=== PATIENT | male | born 1985 | race Caucasian/White ===

== ENCOUNTER 2020-05-15 12:59 | Emergency (ER) | payer MEDICAID, SELFPAY ==
[2020-05-15 14:07] VITALS: BP 134/84; PULSE 86; RESP 19; TEMP 36.6; O2SAT 97; BMI 39.8
--- NOTE | 2020-05-15 14:23 | XR_ITS ---
EXAMINATION: XR chest 1V CLINICAL INFORMATION: Reason for Exam SOB. Asthma COMPARISON: None TECHNIQUE: Portable chest x-ray marked 2:39 PM Tubes and lines: None Lungs and Ina: Both lungs are clear. Pleura: Normal. Costophrenic angles are sharp. No pneumothorax. Heart and mediastinum: The mediastinum is within normal limits.. Bones: Skeletal structures included are normal for patient's age. IMPRESSION: Normal portable chest x-ray.
--- NOTE | 2020-05-15 14:27 | ED.ASTHMA ---
HPI - Asthma General Chief Complaint: Asthma Stated Complaint: ASTHMA Time Seen by Provider: 05/15/20 14:22 Source: patient Mode of arrival: ambulatory History of Present Illness HPI Narrative: 34-year-old male with a PMHx asthma complaining of asthma exacerbation since Saturday night. Reports worsening SOB, dry cough, and mild chest tightness. States ran out of albuterol rescue inhaler, and has been added neb liquid for a long time. Denies fever, chills, CP at present, productive cough, recent travel, history of clots, sick contacts/exposure to COVID-19 complaint: asthma attack , shortness of breath and wheezing Onset (ago): day(s) Related Data Previous Rx's Medication Instructions Recorded albuterol sulfate 2 puff INHALATION Q4-6H PRN #6.7 g 05/15/20 albuterol sulfate 5 mg INHALATION Q4H PRN #30 ea 05/15/20 prednisone 40 mg PO DAILY 5 Days #10 tab 05/15/20 Allergies Allergy/AdvReac Type Severity Reaction Status Date / Time ibuprofen [IBUPROFEN] Allergy Mild ITCHY Unverified 04/21/20 18:39 Review of Systems Review of Systems: Yes all other systems are reviewed and are negative Constitutional: Constitutional: Reports as per HPI, Denies chills and Denies fever(s) Eyes: Eyes: Reports as per HPI and Reports no additional eye complaints ENT: Reports system reviewed and no additional complaints, except as documented and Reports as per HPI Cardiovascular: Cardiovascular: Reports as per HPI, Reports no additional cardiovascular complaints, Reports chest pain (gone), Denies leg edema, Reports dyspnea and Reports dyspnea on exertion Respiratory: Respiratory: Reports as per HPI, Reports chest congestion, Reports cough, Denies excessive phlegm production, Reports dyspnea and Reports dyspnea on exertion Gastrointestinal: Gastrointestinal: Reports as per HPI and Reports no additional gastrointestinal complaints Genitourinary: Genitourinary: Reports as per HPI Musculoskeletal: Musculoskeletal: Reports no additional musculoskeletal complaints and Reports as per HPI Integumentary/Breasts: Skin/Breast: Reports system reviewed and no additional complaints, except as docu, Reports as per HPI, Denies rash and Denies wounds Neurologic: Reports system reviewed and no additional complaints, except as documented and Reports as per HPI Psychiatric: Psychiatric: Reports no additional psychiatric complaints and Reports as per HPI Endocrine: Endocrine: Reports no additional endocrine complaints and Reports as per HPI Hematologic/Lymphatic: Hematologic/Lymphatic: Reports no additional hematologic/lymphatic complaints and Reports as per HPI Allergic/Immunologic: Allergic/Immunologic: Reports no additional allergic/immunologic complaints and Reports as per HPI [facility] Past Medical History Attestation statement: The following information was validated with the patient. Medical History Asthma Social History Social History Alcohol intake: never Smoking Status: Never smoker Use of substances other than those prescribed or required for medical reasons: Yes Substance Use Type: Marijuana Substance Use Frequency: Occasionally Last Used Substance: Weeks (ago) Any prior treatment program specific to substance use: No Advance Directives: No Advance Directives Information Provided: No Physical Exam Vital Signs: Vital Signs: Vital Signs Temp Pulse Resp BP Pulse Ox 05/15/20 16:06 89 20 141/104 H 96 05/15/20 14:07 98 F 86 19 134/84 97 Body Mass Index 39.8 Const: General: cooperative and healthy appearing Orientation/consciousness: patient oriented x3 Limitations: no limitations HENMT: Head: Yes normal to inspection Ears: hearing grossly normal bilaterally General nose exam: Normal external nose present Face and sinus: Yes normal facial exam Eyes: General: appearance normal, both eyes and all related structures EOM: EOMs intact bilaterally Neck: Neck: Yes normal visual inspection Resp: Effort & Inspection: normal respiratory effort, no stridor and not tachypneic Auscultation: wheezes expiratory wheezes, inspiratory wheezes and throughout Cardio: Rate: regular rate Heart sounds: S1 normal heart sound present and S2 normal heart sound present GI: Inspection: Yes normal to inspection Skin: Rashes: no rashes Wounds: no wounds Neuro: General: patient oriented x3 Gait exam (Neuro): Normal gait present Extrem: General: Yes normal to inspection Course Reevaluation(s) Reevaluation #1: on re-evaluation after DuoNeb patient with better air movement but still diffuse wheezing. Patient was moved into main ED, will give our long Duoneb and reassess Time: 15:56 Reevaluation #2: - labs unremarkable, on re-evaluation patient reports symptomatic improvement, lungs CTA. Repeat BP 136/93 worrisome signs and symptoms and strict return precautions discussed with patient. he verbalized understanding feel safe for discharge Time: 17:34 MDM - Asthma MDM Narrative Medical decision making narrative: 34-year-old male with a PMHx asthma complaining of asthma exacerbation since Lance night. Reports worsening SOB, dry cough, and mild chest tightness. On exam VSS, nontoxic appearing, diffuse inspiratory / expiratory wheeze. Concerning for asthma exacerbation. Rule out pneumonia. Low concern for ACS / PE Plan: EKG, labs, CXR, DuoNeb, magnesium, Solu-Medrol, reassess Differential Diagnosis Differential diagnosis: Likely Acute exacerbation, Pneumonia and Pneumothorax Medical Records Attestation: I reviewed the patient's medical records. Lab Data Result diagrams: 05/15/20 16:18 05/15/20 16:18 Labs: Lab Results 05/15/20 05/15/20 05/15/20 Range/Units 16:18 16:18 16:18 WBC 6.1 (4.8-10.8) X10*3/uL RBC 5.14 (4.60-5.80) X10*6/uL Hgb 15.5 (14.0-18.0) g/dl Hct 45.5 (42-52) % MCV 88.5 (80-98) fL MCH 30.2 (27.0-33.0) pg MCHC 34.1 (31.0-36.0) g/dl RDW 12.9 (11.0-16.0) % Plt Count 213 (160-400) X10*3/uL MPV 10.4 (9.4-12.4) fL Immature Gran % (Auto) 0.3 (0.0-0.4) % Neut % (Auto) 50.8 (45-73) % Lymph % (Auto) 30.9 (20-40) % [place] % (Auto) 7.8 (2-11) % Eos % (Auto) 9.5 H (0-4) % Baso % (Auto) 0.7 (0-2) % Lymph # (Auto) 1.9 (1.2-4.9) X10*3/uL [place] # (Auto) 0.5 (0.1-1.2) X10*3/uL Eos # (Auto) 0.6 H (0.0-0.4) X10*3/uL Baso # (Auto) 0.0 (0.0-0.2) X10*3/uL Abs Immat Gran (auto) 0.02 (0.00-0.03) X10*3/uL Absolute Neuts (auto) 3.1 (2.0-8.3) X10*3/uL Absolute Nucleated RBC 0.000 (0.0-0.012) X10*3/uL Nucleated RBC % (auto) 0.0 (0.0-0.2) /100WBC Sodium 138 (135-145) mmol/L Potassium 4.1 (3.3-5.1) mmol/l Chloride 105 (96-108) mmol/L Carbon Dioxide 26 (22-29) mmol/L Anion Gap 11 L (12-20) BUN 9 (9-16) mg/dL Creatinine 0.77 (0.5-1.4) mg/dL Estim Creat Clear Calc 205.6 Estimated GFR > 60 Random Glucose 87 (60-115) mg/dL Calcium 9.2 (8.4-10.2) mg/dL Troponin I High Sens < 3.5 (<3.5-35.0) ng/L Discharge Plan Discharge Clinical Impression: Asthma with acute exacerbation Patient Disposition: Home, Self-Care Instructions: Asthma (ED) Additional Instructions: your blood work and chest x-ray were unremarkable today in the ED Your having an asthma exacerbation new line use albuterol inhaler at home every 4-6 hours as needed In addition you need to be using her nebulizer machine every 4 hours Prednisone as a steroid, take as prescribed Follow-up with her doctor none if symptoms persist /worsen, constant worsening shortness breath/chest pain or cough or fever return to the ED Prescriptions: New prednisone 20 mg tablet 40 mg PO DAILY 5 Days Qty: 10 RF: 0 albuterol sulfate 90 mcg/actuation HFA aerosol inhaler 2 puff inhalation Q4-6H PRN (Reason: shortness of breath or wheezing) Qty: 6.7 RF: 0 albuterol sulfate 2.5 mg/0.5 mL solution for nebulization 5 mg inhalation Q4H PRN (Reason: shortness of breath or wheezing) Qty: 30 RF: 0
--- NOTE | 2020-05-15 14:30 | ECG_ITS ---
Test Reason : SOB Blood Pressure : / mmHG Vent. Rate : 084 BPM Atrial Rate : 084 BPM P-R Int : 142 ms QRS Dur : 090 ms QT Int : 344 ms P-R-T Axes : 042 046 023 degrees QTc Int : 406 ms Normal sinus rhythm Normal ECG No significant changes seen Referred By: Monica Beltran Electronically Signed By:ALLEGRA MARCUS MD
[2020-05-15] MEDS: Albuterol/Iprat 2.5/0.5MG 3 ML AMPUL.NEB INHALE (14:41)
[2020-05-15 16:06] VITALS: BP 141/104; PULSE 89; RESP 20; O2SAT 96
[2020-05-15 16:25] VITALS: PULSE 84; O2SAT 96
[2020-05-15 16:27] LABS: MANUAL DIFF FLAG NO
[2020-05-15 16:29] LABS: Basophils Percent Auto 0.7 % (0-2); Eosinophils Absolute Auto 0.6 X10*3/uL (0.0-0.4); Eosinophils Percent Auto 9.5 % (0-4); Hematocrit 45.5 % (42-52); Hemoglobin 15.5 g/dl (14.0-18.0); Imm Gran Abs Auto 0.02 X10*3/uL (0.00-0.03); Imm Gran Pct Auto 0.3 % (0.0-0.4); Lymphocytes Absolute Auto 1.9 X10*3/uL (1.2-4.9); Lymphocytes Percent Auto 30.9 % (20-40); Mean Corpuscular HGB Conc 34.1 g/dl (31.0-36.0); Mean Corpuscular Hemoglobin 30.2 pg (27.0-33.0); Mean Corpuscular Volume 88.5 fL (80-98); Mean Platelet Volume 10.4 fL (9.4-12.4); Monocytes Absolute Auto 0.5 X10*3/uL (0.1-1.2); Monocytes Percent Auto 7.8 % (2-11); Neutrophils Absolute Auto 3.1 X10*3/uL (2.0-8.3); Neutrophils Percent Auto 50.8 % (45-73); Platelet Count 213 X10*3/uL (160-400); Red Blood Count 5.14 X10*6/uL (4.60-5.80); Red Cell Distribution Width 12.9 % (11.0-16.0); White Blood Count 6.1 X10*3/uL (4.8-10.8)
[2020-05-15] MEDS: Magnesium Sulfate/H2O 2 GM/50 ML PIGGYBACK IV (16:35)
[2020-05-15] MEDS: methylPREDNISolone Sod Succ/PF 125 MG/2 ML VIAL IVPUSH (16:35)
--- NOTE | 2020-05-15 16:38 | PC.NURSE ---
PT ALERT AND ORIENTED, SKIN PWD, RESPIRATIONS EVEN AND UNLABORED, LS DIMINISHED AND WHEEZING THROUGH OUT, PT REPORTS FEELING A LITTLE BETTER AFTER THE FIRST BREATHING TREATMENT, CURRENLTY ON A HOUR LONG TREATMENT. NS ON THE MONITOR
[2020-05-15] MEDS: Albuterol/Iprat 2.5/0.5MG 3 ML AMPUL.NEB 10 ML INHALE (16:40)
[2020-05-15 16:58] LABS: Anion Gap 11 (12-20); Blood Urea Nitrogen 9 mg/dL (9-16); Calcium 9.2 mg/dL (8.4-10.2); Carbon Dioxide 26 mmol/L (22-29); Chloride 105 mmol/L (96-108); Creatinine Clr Calc Pharmacy 205.6; Estimated Glomerular Filt Rate > 60; Glucose Random 87 mg/dL (60-115); Potassium 4.1 mmol/l (3.3-5.1); Sodium 138 mmol/L (135-145)
[2020-05-15 17:06] LABS: Troponin-I High Sensitivity < 3.5 ng/L (<3.5-35.0)
--- NOTE | 2020-05-15 18:37 | PC.NURSE ---
pt reports feeling better, ls improved after the medications
== END 2020-05-15 18:37 | disposition home or self-care (01) ==
PROVIDERS: Physician Assistant; Emergency Provider Emergency Medicine
DX: J45.901 Unspecified asthma with (acute) exacerbation (principal); F12.90 Cannabis use, unspecified, uncomplicated
CPT/HCPCS: 36415; 71045; 80048; 84484; 85025; 93005; 96365; 96375; 99284; J2930; J3475

== ENCOUNTER 2020-06-05 00:57 | Emergency (ER) | payer MEDICAID, SELFPAY ==
[2020-06-05 01:02] LABS: Alanine Aminotransferase 52 U/L (0-40); Alkaline Phosphatase 84 U/L (39-117); Anion Gap 15 (12-20); Aspartate Amino Transferase 23 U/L (5-37); Bilirubin Total 0.3 mg/dL (0.0-1.0); Blood Urea Nitrogen 6 mg/dL (9-16); Calcium 8.4 mg/dL (8.4-10.2); Carbon Dioxide 24 mmol/L (22-29); Chloride 105 mmol/L (96-108); Creatinine Clr Calc Pharmacy 189.7; Estimated Glomerular Filt Rate > 60; Glucose Random 143 mg/dL (60-115); Potassium 3.5 mmol/l (3.3-5.1); Sodium 140 mmol/L (135-145); Total Protein 6.7 g/dL (6.5-8.0)
[2020-06-05 01:04] VITALS: BP 146/76; PULSE 102; RESP 24; TEMP 37.6; O2SAT 95
[2020-06-05 01:06] VITALS: BP 146/76; PULSE 102; RESP 24; TEMP 37.6; O2SAT 95; BMI 40.0
--- NOTE | 2020-06-05 01:09 | XR_ITS ---
EXAMINATION: XR CHEST CLINICAL INFORMATION: Shortness of breath COMPARISON: 05/15/2020 TECHNIQUE: Frontal view of the chest was obtained. FINDINGS: Cardiac leads overlie the chest. The lungs are well expanded. There is no focal consolidation, edema, or effusion. No pneumothorax. The cardiomediastinal silhouette is within normal limits. No acute osseous abnormality. XR/XR chest 1V IMPRESSION: No acute pulmonary finding.
[2020-06-05] MEDS: Albuterol Sulfate (0.083%) 2.5 MG/3 ML VIAL.NEB 10 MG INHALE (01:20)
[2020-06-05 01:25] VITALS: PULSE 124; O2SAT 95
[2020-06-05 01:32] LABS: Basophils Percent Auto 0.6 % (0-2); Eosinophils Absolute Auto 0.4 X10*3/uL (0.0-0.4); Eosinophils Percent Auto 5.7 % (0-4); Hematocrit 42.6 % (42-52); Hemoglobin 14.8 g/dl (14.0-18.0); Imm Gran Abs Auto 0.04 X10*3/uL (0.00-0.03); Imm Gran Pct Auto 0.6 % (0.0-0.4); Lymphocytes Percent Auto 27.2 % (20-40); Mean Corpuscular HGB Conc 34.7 g/dl (31.0-36.0); Mean Corpuscular Hemoglobin 30.3 pg (27.0-33.0); Mean Corpuscular Volume 87.3 fL (80-98); Mean Platelet Volume 10.1 fL (9.4-12.4); Monocytes Absolute Auto 0.5 X10*3/uL (0.1-1.2); Monocytes Percent Auto 6.9 % (2-11); Neutrophils Absolute Auto 4.3 X10*3/uL (2.0-8.3); Platelet Count 216 X10*3/uL (160-400); Red Blood Count 4.88 X10*6/uL (4.60-5.80); Red Cell Distribution Width 12.7 % (11.0-16.0); White Blood Count 7.2 X10*3/uL (4.8-10.8)
[2020-06-05] MEDS: methylPREDNISolone Sod Succ/PF 125 MG/2 ML VIAL IVPUSH (01:32)
--- NOTE | 2020-06-05 01:32 | ED_ITS ---
HPI - Asthma General Chief Complaint: Asthma Stated Complaint: Asthma Time Seen by Provider: 06/05/20 01:08 EDT Source: patient Mode of arrival: ambulatory Limitations: no limitations History of Present Illness HPI Narrative: This is a 34-year-old male with history of asthma and presents with worsening shortness of breath and wheezing over the past couple of days despite using his inhaler every 4 hours. This is not been associated with any fevers, chills, recent travel, or COVID-19 exposure. Related Data Previous Rx's Medication Instructions Recorded albuterol sulfate 2 puff INHALATION Q4-6H PRN #6.7 g 05/15/20 albuterol sulfate 5 mg INHALATION Q4H PRN #30 ea 05/15/20 prednisone 40 mg PO DAILY 5 Days #10 tab 05/15/20 Allergies Allergy/AdvReac Type Severity Reaction Status Date / Time ibuprofen [IBUPROFEN] Allergy Mild ITCHY Verified 06/05/20 01:59 EDT Review of Systems Review of Systems: Pertinent positives and negatives as stated in HPI 10 point review of systems is otherwise negative PMFSH Past Medical History Source: nursing notes reviewed Medical History (Reviewed 06/05/20 @ 01:33 EDT by Teodora Ng MD) Asthma Social History Social History (Reviewed 06/05/20 @ 01:33 EDT by Teodora Ng MD) Alcohol intake: never Smoking Status: Never smoker Smoked in Last 30 Days: No Use of substances other than those prescribed or required for medical reasons: No Substance Use Type: Marijuana Advance Directives: No Advance Directives Information Provided: Yes Physical Exam Vital Signs: Vital Signs: Vital Signs Temp Pulse Resp BP Pulse Ox 06/05/20 01:25 ES T 95 06/05/20 01:06 ED T 99.7 F 102 H 24 H 146/76 H 95 06/05/20 01:04 ED T 99.7 F 102 H 24 H 146/76 H 95 Body Mass Index 40.0 VITAL SIGNS: Reviewed. GENERAL: Well developed, well nourished, in no acute distress. HEAD: Normocephalic/atraumatic, EYES: PERRLA, EOMI intact without pain, no nystagmus/pallor/icterus noted EARS: Ext canals without abnormality, TMs non-bulging and non-erythematous NOSE: Nares patent bilateral OROPHARYNX: no oral lesions noted, posterior pharynx clear and non-erythematous without noted tonsillar enlargement/erythema/exudates NECK: Supple, no adenopathy LUNGS: expiratory wheezing bilaterally with mild increase in work of breathing noted, SpO2<95> CARDIOVASCULAR: Regular rate and rhythm without noted murmurs, no JVD or lower extremity edema. ABDOMEN: Soft, non-tender, non-distended with bowel sounds. No rigidity. No guarding. No palpable masses or hernias noted MUSCULOSKELETAL: No tenderness, deformities, or effusions noted on gross inspection. EXTREMITIES: No cyanosis, clubbing or edema. SKIN: Inspection of the skin reveals no rashes, ulcerations, jaundice, pallor, or petechiae. NEUROLOGIC: Alert and oriented x 4. Strength and sensation to light touch were grossly intact x 4. Course Course Course Narrative: This is a 34-year-old male with history and clinical presentation consistent with mild acute asthma exacerbation. On re-evaluation and review of all investigations patient is clinically improved with no further work of breathing or tachypnea and no evidence of acute abnormalities on lab work or imaging. All results and findings were discussed with the patient at bedside and he will be discharged home in stable condition with a short course of steroids. MDM - Asthma Lab Data Result diagrams: 06/05/20 01:25 EST 06/05/20 01:25 EST Labs: Lab Results 06/05/20 06/05/20 Range/Units 01:25 EST 01:25 EST WBC 7.2 (4.8-10.8) X10*3/uL RBC 4.88 (4.60-5.80) X10*6/uL Hgb 14.8 (14.0-18.0) g/dl Hct 42.6 (42-52) % MCV 87.3 (80-98) fL MCH 30.3 (27.0-33.0) pg MCHC 34.7 (31.0-36.0) g/dl RDW 12.7 (11.0-16.0) % Plt Count 216 (160-400) X10*3/uL MPV 10.1 (9.4-12.4) fL Immature Gran % (Auto) 0.6 H (0.0-0.4) % Neut % (Auto) 59.0 (45-73) % Lymph % (Auto) 27.2 (20-40) % [place] % (Auto) 6.9 (2-11) % Eos % (Auto) 5.7 H (0-4) % Baso % (Auto) 0.6 (0-2) % Lymph # (Auto) 2.0 (1.2-4.9) X10*3/uL [place] # (Auto) 0.5 (0.1-1.2) X10*3/uL Eos # (Auto) 0.4 (0.0-0.4) X10*3/uL Baso # (Auto) 0.0 (0.0-0.2) X10*3/uL Abs Immat Gran (auto) 0.04 H (0.00-0.03) X10*3/uL Absolute Neuts (auto) 4.3 (2.0-8.3) X10*3/uL Absolute Nucleated RBC 0.000 (0.0-0.012) X10*3/uL Nucleated RBC % (auto) 0.0 (0.0-0.2) /100WBC Sodium 140 (135-145) mmol/L Potassium 3.5 (3.3-5.1) mmol/l Chloride 105 (96-108) mmol/L Carbon Dioxide 24 (22-29) mmol/L Anion Gap 15 (12-20) BUN 6 L (9-16) mg/dL Creatinine 0.86 (0.5-1.4) mg/dL Estim Creat Clear Calc 189.7 Estimated GFR > 60 Random Glucose 143 H D (60-115) mg/dL Calcium 8.4 (8.4-10.2) mg/dL Total Bilirubin 0.3 (0.0-1.0) mg/dL AST 23 (5-37) U/L ALT 52 H (0-40) U/L Alkaline Phosphatase 84 (39-117) U/L Total Protein 6.7 (6.5-8.0) g/dL Albumin 4.0 (3.5-5.0) g/dL Discharge Plan Discharge Clinical Impression: Asthma with acute exacerbation Qualifiers: Asthma severity: mild Asthma persistence: unspecified Qualified Code(s): J45.901 - Unspecified asthma with (acute) exacerbation Patient Disposition: Home, Self-Care Instructions: Asthma (ED) Additional Instructions: 1. Use mcguire inhalador de albuterol, 2 inhalaciones, cada suhail lupe horas, lupe las pr?ximas 24 horas. 2. Trate de minimizar el consumo de marihuana lupe las pr?ximas 24 a 48 horas. El paciente y / o la errol reconocen iram comprendido los resultados (seg?n corresponda), el diagn?stico, el plan de tratamiento, la necesidad de seguimiento y los s?ntomas que deber?an impulsar el regreso a la lissa de lydia rgencias.r Prescriptions: No Action prednisone 20 mg tablet 40 mg PO DAILY 5 Days Qty: 10 RF: 0 albuterol sulfate 90 mcg/actuation HFA aerosol inhaler 2 puff inhalation Q4-6H PRN (Reason: shortness of breath or wheezing) Qty: 6.7 RF: 0 albuterol sulfate 2.5 mg/0.5 mL solution for nebulization 5 mg inhalation Q4H PRN (Reason: shortness of breath or wheezing) Qty: 30 RF: 0 Referrals: [facility] [Primary Care Provider] - 2 days (Asthma exacerbation) Print Language: [place] Islander
[2020-06-05 01:33] LABS: MANUAL DIFF FLAG NO
[2020-06-05 02:23] VITALS: BP 137/80; PULSE 112; RESP 20; TEMP 36.6; O2SAT 96
== END 2020-06-05 02:24 | disposition home or self-care (01) ==
PROVIDERS: Emergency Provider Student in an Organized Health Care Education/Training Program
DX: J45.901 Unspecified asthma with (acute) exacerbation (principal); R07.81 Pleurodynia; Z79.899 Other long term (current) drug therapy; Z20.828 Contact with and (suspected) exposure to other viral communicable diseases
CPT/HCPCS: 36415; 71045; 80053; 85025; 96374; 99284; 99285; J2930

== ENCOUNTER 2020-06-18 12:56 | Emergency (ER) | payer MEDICAID, SELFPAY ==
[2020-06-18 13:13] VITALS: BP 125/83; PULSE 94; RESP 18; TEMP 36.9; O2SAT 95; BMI 39.9
--- NOTE | 2020-06-18 13:26 | ED.GENADULT ---
HPI - General Adult General Chief complaint: General Medical Stated complaint: body aches Time Seen by Provider: 06/18/20 13:26 Source: patient Mode of arrival: ambulatory Limitations: no limitations History of Present Illness HPI narrative: States he has had generalized body aches for 2 days and several people his job have been tested positive and he is anxious that he might have COVID-19 he is requesting a test. Denies any chest pain or shortness of breath. No abdominal pain. No nausea vomiting diarrhea. Onset (ago): day(s) ( 2) Severity: mild Quality: aching Pain Consistency: intermittent Relieving factors: none Exacerbating factors: none Associated symptoms: denies other symptoms Treatments prior to arrival: none Related Data Previous Rx's Medication Instructions Recorded albuterol sulfate 2 puff INHALATION Q4-6H PRN #6.7 g 05/15/20 albuterol sulfate 5 mg INHALATION Q4H PRN #30 ea 05/15/20 prednisone 40 mg PO DAILY 5 Days #10 tab 05/15/20 prednisone 40 mg PO DAILY 4 Days #8 tab 06/05/20 Allergies Allergy/AdvReac Type Severity Reaction Status Date / Time ibuprofen [IBUPROFEN] Allergy Mild ITCHY Verified 06/05/20 01:59 EDT Review of Systems Review of Systems: Constitutional: No Weight loss, No Fever, No Chills, No Night Sweats, No Fatigue, No Malaise ENT/Mouth: No Hearing loss, No Ear Pain, + Nasal Congestion, No Sinus Pain, No Hoarseness, No sore throat, No Rhinorrhea, No Swallowing Difficulty Eyes: No Eye Pain, No Swelling, No Redness, No Foreign Body, No Discharge, No Vision Changes Cardiovascular: No Chest Pain, No SOB, No Dyspnea on Exertion, No Orthopnea, No Edema, No Palpitations Respiratory: No Cough, No Sputum, No Wheezing Gastrointestinal: No Nausea, No Vomiting, No Diarrhea, No Constipation, No abdominal Pain Genitourinary: No Hematuria, No Urinary Incontinence, No Urgency, No Flank Pain Musculoskeletal: No joint pain, No Myalgias, No Joint Swelling Skin: No Skin Lesions, No rash Neuro: No Weakness, No Numbness, No Paresthesias, No Loss of Consciousness, No Dizziness, No Headache Psych: No Social Issues Heme/Lymph: No Bruising, No Bleeding,No Lymphadenopathy Endocrine: No Polyuria, No Polydipsia, No Temperature Intolerance Yes all other systems are reviewed and are negative [facility] Past Medical History Attestation statement: The following information was validated with the patient. Medical History (Reviewed 06/05/20 @ 01:33 EDT by Teodora Ng MD) Asthma Social History Social History (Reviewed 06/05/20 @ 01:33 EDT by Teodora Ng MD) Alcohol intake: never Smoking Status: Never smoker Substance Use Type: Marijuana Advance Directives: No Advance Directives Information Provided: Yes Physical Exam Vital Signs: Vital Signs: Last Vital Signs Temp 98.5 F 06/18/20 13:13 Pulse 94 06/18/20 13:13 Resp 18 06/18/20 13:13 BP 125/83 06/18/20 13:13 Pulse Ox 95 06/18/20 13:13 Body Mass Index 39.9 Reviewed Const: General: cooperative and healthy appearing; No acute distress or intoxicated appearing Nutritional Appearance: average body habitus Orientation/consciousness: patient oriented x3 HENMT: Head: Yes normal to inspection Ears: hearing grossly normal bilaterally Eyes: General: appearance normal, both eyes and all related structures Visual Solano: normal visual solano by confrontation Neck: Neck: Yes normal visual inspection, No positive Brudzinski's sign, No positive Kernig's sign and No tender Thyroid: Thyroid normal Chest: Chest palpation & inspection: normal inspection of the chest Resp: Effort & Inspection: normal respiratory effort Cardio: Jugular venous distension: no JVD GI: Inspection: Yes normal to inspection Percussion: Yes normal to percussion Auscultation: normal bowel sounds : General: Yes no CVA tenderness Back/Spine/Pelvis: Back: no CVA tenderness Skin: General skin exam: no rashes or lesions noted Neuro: General: patient oriented x3 Extrem: General: Yes normal to inspection Discharge Plan Discharge Clinical Impression: Acute upper respiratory infection Patient Disposition: Home, Self-Care Additional Instructions: Based on your symptoms and history we have sent a COVID-19. Although your RESULT IS PENDING at this time. RESULTS should return within 72 hours. At this time you will be contacted with either NEGATIVE OR POSITIVE results. -Please wait until we contact you for your results. At this time you will be okay for discharge. Please plan for self quarantine for up to 14 days. Do not expose yourself to others. You may not go to work. If testing does come back negative you may return to activities as long as you are no longer having any symptoms for at least 3 days. Please continue to follow cold instructions and wash your hands frequently. You may take Tylenol as directed on the bottle for pain or fever. Patient seen in the emergency department on 01/29/2020 and should be excused from work until negative test results AND until 72 hours without any symptoms AND at least 10 days have passed since symptoms first appeared or since last exposure to COVID-19 positive patient CDC Guidelines for home isolation: - Stay away from others - WEAR A MASK if you are sick AND STAY HOME - Cover your mouth and nose with a tissue when you cough or sneeze. Dispose of tissues in a lined trash can and wash your hands immediately with soap and water for at least 20 seconds. If soap and water are not available, clean hands with alcohol-based hand belt brander that contains at least 60% alcohol. - Clean your hands often with soap and water for at least 20 seconds - Avoid touching your eyes, nose and mouth with unwashed hands - Do not share dishes, drinking glasses, cups, eating utensils, towels, or bedding with other people in your home. After using these items, wash them thoroughly with soap and water or put in the oceanographer assistant. - Clean high-touch surfaces in your isolation area ( sick room and bathroom) every day; let a caregiver clean and disinfect high-touch surfaces in other areas of the home. Clean the area or item with soap and water or another detergent if it is dirty. Then, use a household disinfectant. - Limit contact with pets and animals: If you must care for a pet, wash your hands before and after interacting with them Prescriptions: No Action prednisone 20 mg tablet 40 mg PO DAILY 5 Days Qty: 10 RF: 0 albuterol sulfate 90 mcg/actuation HFA aerosol inhaler 2 puff inhalation Q4-6H PRN (Reason: shortness of breath or wheezing) Qty: 6.7 RF: 0 albuterol sulfate 2.5 mg/0.5 mL solution for nebulization 5 mg inhalation Q4H PRN (Reason: shortness of breath or wheezing) Qty: 30 RF: 0 prednisone 20 mg tablet 40 mg PO DAILY 4 Days Qty: 8 RF: 0 Referrals: Jordyn Sexton MD [Primary Care Provider] - 1 week (Phone visit )
== END 2020-06-18 13:45 | disposition home or self-care (01) ==
PROVIDERS: Nurse Practitioner Primary Care; Emergency Provider Emergency Medicine; PCP Internal Medicine
DX: J06.9 Acute upper respiratory infection, unspecified (principal); M79.10 Myalgia, unspecified site; F12.90 Cannabis use, unspecified, uncomplicated; Z20.828 Contact with and (suspected) exposure to other viral communicable diseases
CPT/HCPCS: 99283; U0003

== ENCOUNTER 2020-07-12 22:05 | Emergency (ER) | payer MEDICAID, SELFPAY ==
--- NOTE | 2020-07-12 | ECG_ITS ---
Test Reason : REPEAT Blood Pressure : / mmHG Vent. Rate : 080 BPM Atrial Rate : 080 BPM P-R Int : 150 ms QRS Dur : 094 ms QT Int : 368 ms P-R-T Axes : 046 045 025 degrees QTc Int : 424 ms Normal sinus rhythm Normal ECG When compared with ECG of 15-MAY-2020 15:47, No significant change was found Referred By: Charisma Mccartney Electronically Signed By:DEBBI JEFF
[2020-07-12 22:12] VITALS: BP 132/93; PULSE 90; RESP 18; TEMP 37.1; O2SAT 97; BMI 39.9
--- NOTE | 2020-07-12 22:45 | XR_ITS ---
EXAMINATION: XR CHEST CLINICAL INFORMATION: Shortness of breath COMPARISON: 06/05/2020 TECHNIQUE: Frontal view of the chest was obtained. FINDINGS: Normal symmetric lung volumes. No parenchymal consolidation. No pleural effusion. No pneumothorax. Cardiomediastinal silhouette and pulmonary vascularity are within normal limits. No acute osseous abnormalities. Rounded metallic density redemonstrated projecting over the right hemithorax. XR/XR chest 1V IMPRESSION: No acute findings.
--- NOTE | 2020-07-12 22:46 | ED_ITS ---
HPI - General Adult General Chief complaint: Dyspnea Stated complaint: flu like Time Seen by Provider: 07/12/20 22:41 Source: patient Mode of arrival: ambulatory Limitations: no limitations History of Present Illness HPI narrative: patient comes to emergency room complaining of feeling anxious, mild shortness of breath, possible asthma exacerbation. Patient states that he works 2nd shift, he had to leave work because he started feeling anxious. Patient states he was diagnosed with COVID-19 approximately 25 days ago. States he has been doing well until today. Patient has been using his inhaler almost daily but his asthma exacerbations resolved quickly. At this time, patient does not feel short of breath, no chest pain, states that sometimes it hurts when he takes a deep breath in the posterior aspect of the right side of the back. Patient denies fever or chills. Patient used his inhaler prior to arrival to the emergency room MD complaint: anxiety, asthma Related Data Previous Rx's Medication Instructions Recorded albuterol sulfate 2 puff INHALATION Q4-6H PRN #6.7 g 05/15/20 albuterol sulfate 5 mg INHALATION Q4H PRN #30 ea 05/15/20 prednisone 40 mg PO DAILY 5 Days #10 tab 05/15/20 prednisone 40 mg PO DAILY 4 Days #8 tab 06/05/20 prednisone 50 mg PO DAILY #4 tab 07/12/20 Allergies Allergy/AdvReac Type Severity Reaction Status Date / Time ibuprofen [IBUPROFEN] Allergy Mild ITCHY Verified 06/05/20 01:59 EDT Review of Systems Review of Systems: Constitutional : No Weight loss, No Fever, No Chills, No Night Sweats, No Fatigue, No Malaise ENT/Mouth : No Hearing loss, No Ear Pain, No Nasal Congestion, No Sinus Pain, No Hoarseness, No sore throat, No Rhinorrhea, No Swallowing Difficulty Eyes: No Eye Pain, No Swelling, No Redness, No Foreign Body, No Discharge, No Vision Changes Cardiovascular : No Chest Pain, No SOB, No Dyspnea on Exertion, No Orthopnea, No Edema, No Palpitations Respiratory : No Cough, No Sputum, No Wheezing at this time, No Dyspnea Gastrointestinal : No Nausea, No Vomiting, No Diarrhea, No Constipation, No abdominal Pain, No Hematochezia, No Melena Genitourinary : no irregular bleeding, No Dysuria, No Urinary Frequency, No Hematuria, No Urinary Incontinence, No Urgency, No Flank Pain, No Urinary Flow Changes, No Hesitancy Musculoskeletal : No joint pain, No Myalgias, No Joint Swelling Skin : No Skin Lesions, No rash Neuro : No Weakness, No Numbness, No Paresthesias, No Loss of Consciousness, No Dizziness, No Headache Psych : complaining of anxiety, No Depression, No SI/HI/AH/VH, No Social Issues, Heme/Lymph: No Bruising, No Bleeding,No Lymphadenopathy Endocrine : No Polyuria, No Polydipsia, No Temperature Intolerance [facility] Past Medical History Medical History (Updated 07/12/20 @ 23:53 by Charisma Mccartney MD) Anxiety Asthma Depression Social History Social History (Reviewed 06/05/20 @ 01:33 EDT by Teodora Ng MD) Alcohol intake: never Smoking Status: Never smoker Smoked in Last 30 Days: No Use of substances other than those prescribed or required for medical reasons: No Substance Use Type: Marijuana Advance Directives: No Advance Directives Information Provided: No Physical Exam Vital Signs: Vital Signs: Last Vital Signs Temp 99.2 F 07/12/20 22:52 Pulse 92 07/12/20 22:52 Resp 18 07/12/20 22:52 BP 149/93 H 07/12/20 22:52 Pulse Ox 96 07/12/20 22:52 Body Mass Index 39.9 Appearance: Alert. Oriented X3. No acute distress. Eyes: Pupils equal, round and reactive to light. ENT: Pharynx normal. Neck: Normal inspection. Neck supple. No lymph nodes noted. No crepitus CVS: Normal heart rate and rhythm. Pulses normal. Normal S1 and S2 Respiratory: No respiratory distress. Breath sounds normal. No Wheezing. No rales Abdomen: Soft and nontender. No rigidity. No distention. good BS x4 Skin: Skin warm and dry. Normal skin color. Normal skin turgor. Extremities: No lower extremity edema. No lower extremity edema. No Lacer ations. No Rash Neuro: Oriented X 3. No motor deficit. No sensory deficit. Moving all extermities. No slurred speech. Course Course Course Narrative: patient is symptomatic, discussed the x-ray and EKG with the patient, patient will be discharged with a prescription of prednisone, states he has enough albuterol. Patient symptoms also likely related to anxiety Patient requested medication for anxiety Medical Decision Making Imaging Data Chest x-ray: Radiologist's impression: Please follow-up with your primary care physician tomorrow. If you have any worsening or new symptoms, please return to the emergency room or call 911 ECG Data Attestation: I personally reviewed and interpreted this ECG as follows: ( heart rate 80, QTC 424, mostly segment depressions or elevations, no T-wave inversions.) Discharge Plan Discharge Clinical Impression: Asthma, Acute dyspnea, Anxiety Patient Disposition: Home, Self-Care Instructions: Asthma (ED) Additional Instructions: Please follow-up with your primary care physician tomorrow. If you have any worsening or new symptoms, please return to the emergency room or call 911 Prescriptions: New prednisone 50 mg tablet 50 mg PO DAILY Qty: 4 RF: 0 No Action prednisone 20 mg tablet 40 mg PO DAILY 5 Days Qty: 10 RF: 0 albuterol sulfate 90 mcg/actuation HFA aerosol inhaler 2 puff inhalation Q4-6H PRN (Reason: shortness of breath or wheezing) Qty: 6.7 RF: 0 albuterol sulfate 2.5 mg/0.5 mL solution for nebulization 5 mg inhalation Q4H PRN (Reason: shortness of breath or wheezing) Qty: 30 RF: 0 prednisone 20 mg tablet 40 mg PO DAILY 4 Days Qty: 8 RF: 0
[2020-07-12 22:52] VITALS: BP 149/93; PULSE 92; RESP 18; TEMP 37.3; O2SAT 96
[2020-07-12] MEDS: predniSONE 20 MG TABLET 60 MG PO (22:56)
== END 2020-07-13 00:40 | disposition home or self-care (01) ==
PROVIDERS: Emergency Provider Emergency Medicine; PCP Internal Medicine
DX: R06.00 Dyspnea, unspecified (principal); J45.909 Unspecified asthma, uncomplicated; F41.1 Generalized anxiety disorder; F43.0 Acute stress reaction; F12.90 Cannabis use, unspecified, uncomplicated; Z86.19 Personal history of other infectious and parasitic diseases
CPT/HCPCS: 71045; 93005; 99283; 99284

== ENCOUNTER 2020-08-15 09:34 | Inpatient (IN) | payer MEDICAID, SELFPAY ==
[2020-08-15] VITALS (8 sets, daily range): BP systolic 100–154; BP diastolic 62–90; PULSE 113–123; RESP 20–30; TEMP 36.2–37; O2SAT 88–98; BMI 38.7
--- NOTE | 2020-08-15 10:12 | XR_ITS ---
EXAMINATION: XR CHEST CLINICAL INFORMATION: Dyspnea COMPARISON: Previous chest x-ray most recent July 06 and TECHNIQUE: Frontal view of the chest was obtained. FINDINGS: The cardiac and mediastinal contours are normal. The lung volumes are low. There is question of an infiltrate in the right upper lobe. There is a round radiopaque foreign body that projects over the right mid chest that is stable. The lungs are otherwise clear. There is no pleural effusion or pneumothorax. There are degenerative changes of the spine. XR/XR chest 1V IMPRESSION: Low lung volumes. Question right upper lobe infiltrate.
--- NOTE | 2020-08-15 10:24 | ED.SOB ---
HPI - SOB/Dyspnea General Chief Complaint: Asthma Stated Complaint: sob Time Seen by Provider: 08/15/20 10:12 Source: patient and old records reviewed Mode of arrival: ambulatory Limitations: no limitations History of Present Illness HPI Narrative: 35 yo male with a history of asthma, COVID in june - states he has INH and nebulizer treatments at home, also states he is on daily prednisone from his PCP return of asthma as of last night unknown exposure MD elicited complaint: shortness of breath and cough Pertinent past history: asthma Onset (ago): day(s) (last night) Timing: constant Severity: similar to previous episodes Exacerbating factors: exertion Relieving factors: nothing Known history of: asthma Associated symptoms: denies other symptoms Treatment prior to arrival: bronchodilator Related Data Previous Rx's Medication Instructions Recorded albuterol sulfate 2 puff INHALATION Q4-6H PRN #6.7 g 05/15/20 albuterol sulfate 5 mg INHALATION Q4H PRN #30 ea 05/15/20 Allergies Allergy/AdvReac Type Severity Reaction Status Date / Time ibuprofen [IBUPROFEN] Allergy Mild ITCHY Verified 08/15/20 10:31 Review of Systems Review of Systems: Constitutional : No Fever, No Chills ENT/Mouth : No Hoarseness, No sore throat, No Rhinorrhea Eyes: No Redness, No Discharge, No Vision Changes Cardiovascular : No Chest Pain, positive SOB, positive Dyspnea on Exertion, No Edema Respiratory : positive Cough, No Sputum, positive Wheezing, Gastrointestinal : No Nausea, No Vomiting, No Diarrhea, No abdominal Pain Genitourinary : No Dysuria, No Hematuria Musculoskeletal : No joint pain, No Myalgias Skin : No rash Neuro : No Weakness, No Numbness, No Headache Psych : No anxiety, depression Heme/Lymph: No Bruising, No Bleeding Endocrine : No Polyuria, No Polydipsia All other systems reviewed and are negative PMFSH Past Medical History Attestation statement: The following information was validated with the patient. Medical History Anxiety Asthma Depression Social History Social History Alcohol intake: never Smoking Status: Never smoker Use of substances other than those prescribed or required for medical reasons: No Substance Use Type: Marijuana Advance Directives: No Advance Directives Information Provided: No Physical Exam Vital Signs: Vital Signs: Last Vital Signs Temp 98.3 F 08/15/20 10:27 Pulse 123 H 08/15/20 12:49 Resp 28 H 08/15/20 12:49 BP 115/62 08/15/20 12:49 Pulse Ox 95 08/15/20 12:49 Body Mass Index 38.7 Appearance: Alert. Oriented X3. Mild acute distress. Eyes: Pupils equal, round and reactive to light. ENT: Pharynx normal. Neck: Normal inspection. Neck supple. CVS: Normal heart rate and rhythm. Pulses normal. Respiratory: Mild respiratory distress with retractions and tachypnea Breath sounds decreased with end exp wheezes Abdomen: Soft and nontender. Skin: Skin warm and dry. Normal skin color. Normal skin turgor. Extremities: No lower extremity edema. No calf ttp Neuro: Oriented X 3. No motor deficit. No sensory deficit. Course Course Course Narrative: the patient has not had a sleep study yet RR still in 30s, O2 desats to 88% at times, will need admission for further management repeat neb ordered 110pm denied infectious symptoms but possible infiltrate on CXR - will add on lactic acid, cultures, IV antibiotics for possible pneumonia MDM - SOB/Dyspnea MDM Narrative Medical decision making narrative: 35 yo male with known asthma reports it worsened last night, has steroids and INH/neb at home, at this time will need basic labs, CXR, hour long 10mg neb, IV steroids, IV magnesium dispo per results and findings. Lab Data Result diagrams: 08/15/20 10:38 08/15/20 10:38 Labs: Lab Results 08/15/20 08/15/20 08/15/20 Range/Units 10:38 10:38 10:38 WBC 10.4 (4.8-10.8) X10*3/uL RBC 5.11 (4.60-5.80) X10*6/uL Hgb 15.3 (14.0-18.0) g/dl Hct 44.8 (42-52) % MCV 87.7 (80-98) fL MCH 29.9 (27.0-33.0) pg MCHC 34.2 (31.0-36.0) g/dl RDW 13.0 (11.0-16.0) % Plt Count 230 (160-400) X10*3/uL MPV 9.9 (9.4-12.4) fL Immature Gran % (Auto) 0.3 (0.0-0.4) % Neut % (Auto) 71.5 (45-73) % Lymph % (Auto) 15.5 L (20-40) % [place] % (Auto) 7.7 (2-11) % Eos % (Auto) 4.4 H (0-4) % Baso % (Auto) 0.6 (0-2) % Lymph # (Auto) 1.6 (1.2-4.9) X10*3/uL [place] # (Auto) 0.8 (0.1-1.2) X10*3/uL Eos # (Auto) 0.5 H (0.0-0.4) X10*3/uL Baso # (Auto) 0.1 (0.0-0.2) X10*3/uL Abs Immat Gran (auto) 0.03 (0.00-0.03) X10*3/uL Absolute Neuts (auto) 7.4 (2.0-8.3) X10*3/uL Absolute Nucleated RBC 0.000 (0.0-0.012) X10*3/uL Nucleated RBC % (auto) 0.0 (0.0-0.2) /100WBC Sodium 139 (135-145) mmol/L Potassium 4.8 D (3.3-5.1) mmol/l Chloride 103 (96-108) mmol/L Carbon Dioxide 26 (22-29) mmol/L Anion Gap 15 (12-20) BUN 10 D (9-16) mg/dL Creatinine 0.88 (0.5-1.4) mg/dL Estim Creat Clear Calc 180.6 Estimated GFR > 60 Random Glucose 112 (60-115) mg/dL Calcium 9.0 D (8.4-10.2) mg/dL B-Natriuretic Peptide < 10 (<100) pg/mL Critical Care Time Critical Care Time Critical Care Time: Yes Total Critical Care Time: 35 Attestation: hour long 10mg neb, IV steroids, O2 supplementation Discharge Plan Discharge Clinical Impression: Asthma with acute exacerbation, Pneumonia Patient Disposition: Admitted As Inpatient
[2020-08-15 10:50] LABS: Basophils Absolute Auto 0.1 X10*3/uL (0.0-0.2); Basophils Percent Auto 0.6 % (0-2); Eosinophils Absolute Auto 0.5 X10*3/uL (0.0-0.4); Eosinophils Percent Auto 4.4 % (0-4); Hematocrit 44.8 % (42-52); Hemoglobin 15.3 g/dl (14.0-18.0); Imm Gran Abs Auto 0.03 X10*3/uL (0.00-0.03); Imm Gran Pct Auto 0.3 % (0.0-0.4); Lymphocytes Absolute Auto 1.6 X10*3/uL (1.2-4.9); Lymphocytes Percent Auto 15.5 % (20-40); MANUAL DIFF FLAG NO; Mean Corpuscular HGB Conc 34.2 g/dl (31.0-36.0); Mean Corpuscular Hemoglobin 29.9 pg (27.0-33.0); Mean Corpuscular Volume 87.7 fL (80-98); Mean Platelet Volume 9.9 fL (9.4-12.4); Monocytes Absolute Auto 0.8 X10*3/uL (0.1-1.2); Monocytes Percent Auto 7.7 % (2-11); Neutrophils Absolute Auto 7.4 X10*3/uL (2.0-8.3); Neutrophils Percent Auto 71.5 % (45-73); Platelet Count 230 X10*3/uL (160-400); Red Blood Count 5.11 X10*6/uL (4.60-5.80); White Blood Count 10.4 X10*3/uL (4.8-10.8)
[2020-08-15] MEDS: methylPREDNISolone Sod Succ/PF 125 MG/2 ML VIAL 60 MG IVPUSH (10:50)
[2020-08-15] MEDS: Magnesium Sulfate/H2O 2 GM/50 ML PIGGYBACK IV (10:51)
[2020-08-15] MEDS: Albuterol Sulfate (0.083%) 2.5 MG/3 ML VIAL.NEB 10 MG INHALE (10:51)
[2020-08-15 11:28] LABS: Anion Gap 15 (12-20); Blood Urea Nitrogen 10 mg/dL (9-16); Carbon Dioxide 26 mmol/L (22-29); Chloride 103 mmol/L (96-108); Creatinine Clr Calc Pharmacy 180.6; Estimated Glomerular Filt Rate > 60; Glucose Random 112 mg/dL (60-115); Potassium 4.8 mmol/l (3.3-5.1); Sodium 139 mmol/L (135-145)
[2020-08-15 11:35] LABS: B Type Natriuretic Peptide < 10 pg/mL (<100)
[2020-08-15 13:11] LABS: COVID-19 Test Negative (Negative); IDNOW Serial# 9DD0AD1C
[2020-08-15] MEDS: levalbuterol HCL 1.25 MG/3 ML VIAL.NEB INHALE (13:46)
[2020-08-15] MEDS: cefTRIAXone sodium 1 GM in 0.9 % Sodium Chloride 50 ML IV (14:05)
[2020-08-15] MEDS: 0.9 % Sodium Chloride 1,000 ML 999 ML IVCONT (14:05)
[2020-08-15] MEDS: Azithromycin 500 MG TABLET PO (14:05)
[2020-08-15 14:24] LABS: Lactic Acid 3.8 mmol/L (0.5-2.0)
--- NOTE | 2020-08-15 14:36 | PM.IMHP ---
History of Present Illness Date of Service: 08/15/20 Chief Complaint: Shortness of breath This is a 35-year-old male with a history asthma who presents to the emergency department with complaints of shortness of breath. He reports this worsened overnight. He has associated chest tightness. He coughs when he tries to take a deep breath. He denies any associated fever or chills. He has been using his inhalers and nebulizer at home with no significant improvement in his symptoms. Reports feeling somewhat better after receiving breathing treatments, oxygen and Solu-Medrol in the emergency department. He was noted to be tachypneic and oxygen saturation dropped as low as 88% on room air chest x-ray revealed possible pneumonia right upper lobe and he was treated with IV antibiotics. Review of Systems Review of Systems: Yes all other systems are reviewed and are negative Constitutional: Constitutional: Denies chills and Denies fever(s) Cardiovascular: Cardiovascular: Reports dyspnea Respiratory: Respiratory: Reports dyspnea Gastrointestinal: Gastrointestinal: Denies abdominal pain PMFSH Medical History (Updated 08/15/20 @ 15:[address]) Anxiety Asthma COVID-19 Depression Functional capacity: independent ambulation Pertinent family history: no family history of asthma Family history: reviewed and not pertinent Social History Alcohol intake: never Smoking Status: Never smoker Use of substances other than those prescribed or required for medical reasons: No Substance Use Type: Marijuana Advance Directives: No Advance Directives Information Provided: No Meds Allergies Allergy/AdvReac Type Severity Reaction Status Date / Time ibuprofen [IBUPROFEN] Allergy Mild ITCHY Verified 08/15/20 10:31 Physical Exam Vital Signs and Narrative: Vital Signs: Last Vital Signs Temp 98.3 F 08/15/20 10:27 Pulse 123 H 08/15/20 12:49 Resp 28 H 08/15/20 12:49 BP 115/62 08/15/20 12:49 Pulse Ox 95 08/15/20 12:49 Body Mass Index 38.7 Const: General: alert and awake Nutritional Appearance: well nourished Orientation/consciousness: patient oriented x3 HENMT: Head: Yes normocephalic and Yes atraumatic Eyes: Sclerae: sclerae normal Chest: Chest palpation & inspection: normal inspection of the chest Resp: Other: able to speak in full sentences Auscultation: wheezes throughout Cardio: Rate: regular rate Rhythm: regular rhythm GI: Palpation (GI): Soft to palpation and nontender Skin: General skin exam: no rashes or lesions noted Neuro: General: patient oriented x3 Cranial nerves: Yes CN's II-XII intact bilaterally and Yes Bilaterally intact EOM present Extrem: General: Yes normal to inspection Results Labs CBC and Chem 7: 08/15/20 10:38 08/15/20 10:38 Labs: Laboratory Results - last 24 hr 08/15/20 08/15/20 08/15/20 10:38 10:38 10:38 MCV 87.7 MCH 29.9 MCHC 34.2 RDW 13.0 Plt Count 230 MPV 9.9 Immature Gran % (Auto) 0.3 Neut % (Auto) 71.5 Lymph % (Auto) 15.5 L [place] % (Auto) 7.7 Eos % (Auto) 4.4 H Baso % (Auto) 0.6 Lymph # (Auto) 1.6 [place] # (Auto) 0.8 Eos # (Auto) 0.5 H Baso # (Auto) 0.1 Abs Immat Gran (auto) 0.03 Absolute Neuts (auto) 7.4 Absolute Nucleated RBC 0.000 Nucleated RBC % (auto) 0.0 Anion Gap 15 Estim Creat Clear Calc 180.6 Estimated GFR > 60 Random Glucose 112 Lactic Acid Calcium 9.0 D B-Natriuretic Peptide < 10 COVID-19 ([facility]) COVID-19 Clin Com 08/15/20 08/15/20 12:45 13:30 MCV MCH MCHC RDW Plt Count MPV Immature Gran % (Auto) Neut % (Auto) Lymph % (Auto) [place] % (Auto) Eos % (Auto) Baso % (Auto) Lymph # (Auto) [place] # (Auto) Eos # (Auto) Baso # (Auto) Abs Immat Gran (auto) Absolute Neuts (auto) Absolute Nucleated RBC Nucleated RBC % (auto) Anion Gap Estim Creat Clear Calc Estimated GFR Random Glucose Lactic Acid 3.8 H* Calcium B-Natriuretic Peptide COVID-19 ([facility]) Negative COVID-19 Clin Com See Note Imaging Radiologist's Impressions: Impressions Chest X-Ray 08/15/20 10:12 IMPRESSION: Low lung volumes. Question right upper lobe infiltrate. Assessment and Plan (1) Asthma with acute exacerbation: Qualifiers: Asthma persistence: persistent Asthma severity: moderate Qualified Code(s): J45.41 - Moderate persistent asthma with (acute) exacerbation Status: Acute (2) Pneumonia: Qualifiers: Laterality: unspecified laterality Lung location: unspecified part of lung Pneumonia type: due to unspecified organism Qualified Code(s): J18.9 - Pneumonia, unspecified organism Status: Acute This is a 35-year-old male with history of asthma who presents to the emergency department found to have acute asthma exacerbation and pneumonia Acute respiratory failure with hypoxia (o2 88% on RA) Community acquired pneumonia gram -or gram+ Acute asthma exacerbation -supplemental oxygen prn -IV solumedrol -IV ceftriaxone/azithromycin -breathing treatments dvt ppx- lovenox code status - full This case was discussed with Dr. Almanzar
[2020-08-15 15:48] LABS: Reflex Lactate? Lactic Acid Added
[2020-08-15 16:46] LABS: ~Lactic Acid-LAB USE ONLY 6.3 mmol/L (0.5-2.0)
--- NOTE | 2020-08-15 17:32 | PC.NURSE ---
CALLED UP TO FLOOR FOR REPORT
--- NOTE | 2020-08-15 17:34 | PM.EVENT ---
Event Note Date of Service: 08/15/20 Event Note: Admission note the patient was seen and evaluated with COURT [place]. I agree with her note, assessment and plan with the following. 35 years old male with PMH of asthma who presents to the hospital with shortness of breath. An x-ray in the emergency was consistent with pneumonia. He was found to be hypoxic in 88% on room air. Admitted for further evaluation treatment. Acute hypoxic respiratory failure Community-acquired pneumonia Asthma exacerbation To wean oxygen down as tolerated pending cultures continue IV antibiotics continue steroids Bronchodilator nebulizers Rest of evaluations by PA note.
--- NOTE | 2020-08-15 17:47 | PC.NURSE ---
SOME EXP WHEEZING IN BILAT UPPER LOBES. PT AMBULATING WITH NO ISSUES. AWARE OF PLAN FOR ADMISSION AND CARE. REPORT GIVEN TO [facility] ROOM SUPERVISOR. TO BE TRANSPORTED SHORTLY. ADMISSION RX FOR SOLUMEDROL NOT ADMINISTERED GIVEN ADMIN OF THE SAME EARLIER THIS AFTERNOON.
[2020-08-15 18:16] LABS: Reflex Lactate? 2 Y
[2020-08-15] MEDS: Albuterol Sulfate (0.083%) 2.5 MG/3 ML VIAL.NEB INHALE (19:27)
[2020-08-15 20:11] LABS: ~Lactic Acid-LAB USE ONLY 5.9 mmol/L (0.5-2.0)
[2020-08-15] MEDS: 0.9 % Sodium Chloride Flush 3 ML SYRINGE IVFLUSH (21:00)
[2020-08-16] VITALS (7 sets, daily range): BP systolic 138–155; BP diastolic 72–84; PULSE 87–116; RESP 16–18; TEMP 36.3–37.2; O2SAT 94–98; BMI 38.7
[2020-08-16] MEDS: Albuterol Sulfate (0.083%) 2.5 MG/3 ML VIAL.NEB INHALE ×4 (00:34→20:36)
[2020-08-16] MEDS: 0.9 % Sodium Chloride Flush 3 ML SYRINGE IVFLUSH ×2 (09:03→15:28)
[2020-08-16] MEDS: cefTRIAXone sodium 1 GM in 0.9 % Sodium Chloride 50 ML IV (09:04)
[2020-08-16] MEDS: Azithromycin 500 MG in 0.9 % Sodium Chloride 250 ML 125 MG IV (10:11)
[2020-08-16 10:47] LABS: Basophils Percent Auto 0.1 % (0-2); Hematocrit 42.2 % (42-52); Imm Gran Abs Auto 0.12 X10*3/uL (0.00-0.03); Imm Gran Pct Auto 0.7 % (0.0-0.4); Lymphocytes Absolute Auto 0.9 X10*3/uL (1.2-4.9); Lymphocytes Percent Auto 5.1 % (20-40); MANUAL DIFF FLAG SCAN; Mean Corpuscular HGB Conc 33.2 g/dl (31.0-36.0); Mean Corpuscular Hemoglobin 29.8 pg (27.0-33.0); Mean Corpuscular Volume 89.8 fL (80-98); Mean Platelet Volume 10.1 fL (9.4-12.4); Monocytes Absolute Auto 0.6 X10*3/uL (0.1-1.2); Monocytes Percent Auto 3.7 % (2-11); Neutrophils Absolute Auto 15.2 X10*3/uL (2.0-8.3); Neutrophils Percent Auto 90.4 % (45-73); Platelet Count 228 X10*3/uL (160-400); Red Cell Distribution Width 13.1 % (11.0-16.0); SCAN SMEAR FLAG 1; White Blood Count 16.8 X10*3/uL (4.8-10.8)
[2020-08-16 11:12] LABS: SLIDE REVIEW VERIFIED
--- NOTE | 2020-08-16 13:17 | HO.PM.IMPN ---
Subjective Subjective Date of Service: 08/16/20 Interval History: the patient was seen and evaluated this morning Laying in bed, feels comfortable Denies any fever, chills or shortness of breath No reported other overnight events. Systemic review: No fever, chills or weakness No chest pain, palpitation Complaining of shortness of breath and dyspnea on exertion but overall better No abdominal pain, nausea or vomiting No urinary symptoms No any rash or wounds Physical Exam Vital Signs: Vital Signs: Last Vital Signs Temp 97.7 F 08/16/20 07:35 Pulse 108 H 08/16/20 12:00 Resp 18 08/16/20 07:35 BP 142/77 H 08/16/20 07:35 Pulse Ox 96 08/16/20 07:35 Body Mass Index 38.7 Constitutional : Alert, oriented, not in distress Neck : Normal inspection, Supple Cardiovascular : RRR, S1 S2, no lower extremity edema Respiratory : Decreased bilateral air entry with bilateral scattered wheezes, no crackles Gastrointestinal: soft, lax, Normal bowel sounds, Non tender Skin : Warm/Dry, No rash Neurological : Alert & oriented x3, No focal deficit Objective Data Current Medications Generic Name Dose Route Start Last Admin Trade Name Freq PRN Reason Stop Dose Admin Acetaminophen 650 mg 08/15/20 14:32 Acetaminophen 325 Mg Tablet PO Q6H PRN Pain, Mild (Pain Scale 1-3) Albuterol Sulfate 2.5 mg 08/15/20 16:00 08/16/20 11:59 Albuterol Sulfate (0.083%) 2.5 Mg/3 Ml Vial.Neb INHALE 2.5 mg RQ4H EZEQUIEL Administration Albuterol Sulfate 2.5 mg 08/15/20 17:50 Albuterol Sulfate (0.083%) 2.5 Mg/3 Ml Vial.Neb INHALE Q3H PRN Shortness of Breath/Wheezing Docusate Sodium 100 mg 08/15/20 14:32 Docusate Sodium 100 Mg Capsule PO DAILY PRN Constipation Enoxaparin Sodium 40 mg 08/15/20 14:32 08/15/20 18:03 Enoxaparin Sodium 40 Mg/0.4 Ml Syringe SUBCUT Not Given Q24H EZEQUIEL Ceftriaxone Sodium 1 gm/ 50 mls @ 100 mls/hr 08/16/20 09:00 08/16/20 10:13 Sodium Chloride IV Infused Q24H EZEQUIEL Infusion Azithromycin 500 mg/ Sodium 250 mls @ 125 mls/hr 08/16/20 09:00 08/16/20 12:26 Chloride IV Infused Q24H EZEQUIEL Infusion Methylprednisolone Sodium Succinate 40 mg 08/15/20 14:32 08/16/20 00:49 Methylprednisolone Sod Succ/Pf 40 Mg/Ml Vial IVPUSH 40 mg Q12H EZEQUIEL Administration Ondansetron HCl 4 mg 08/15/20 14:32 Ondansetron Hcl 4 Mg/2 Ml Vial IVPUSH Q8H PRN Nausea and Vomiting Pharmacy Consult 1 each 08/15/20 12:16 Consult Rx Perform Med Rec MISCELLANE ONCE PRN Consult order Sodium Chloride 3 ml 08/15/20 16:00 08/16/20 09:03 0.9 % Sodium Chloride Flush 3 Ml Syringe IVFLUSH 3 ml QSHIFT EZEQUIEL Administration Labs CBC & Chem 7: 08/16/20 10:38 08/15/20 10:38 Assessment and Plan (1) Asthma with acute exacerbation: Status: Acute (2) Pneumonia: Status: Acute Assessment and Plan: This is a 35-year-old male with history of asthma who presents to the emergency department found to have acute asthma exacerbation and pneumonia 35 years old male with PMH of asthma who presents to the hospital with shortness of breath. An x-ray in the emergency was consistent with pneumonia. He was found to be hypoxic in 88% on room air. Admitted for further evaluation treatment. Acute hypoxic respiratory failure Community-acquired pneumonia Asthma exacerbation To wean oxygen down as tolerated pending cultures continue IV azithromycin and ceftriaxone continue steroids Bronchodilator nebulizers dvt ppx lovenox
--- NOTE | 2020-08-16 13:55 | MHC.CM.PN ---
NURSE PATIENT ACCESS COORDINATOR NOTE ELECTRONIC MEDICAL RECORD REVIEWED ALONG WITH CASE DISCUSSED WITH STAFF NURSE AND ON MULTIPLE DISCIPLINARY MET WITH PATIENT WITH [facility] [place] [facility] CARDIOVASCULAR ROUNDS, PATIENT REPORTS THAT HE IS ACTIVE INDEPENDENT IN ALL ADLS AND MOBILITY HE IS EMPLOYED FUL TIME AND HAS NO VNA , NO DME SERVICES IN THE HOME EDUCATED ABOUT THE IMPORTANCE OF HAVING A HEALTH CARE PROXY HE REP[ORTED THAT HE HAS A HISTORY OF ANXIETY AND DEPRESSION , AND IN THE PAST WAS SEEING SOMEONE , BUT NO LONGER AND HE IS NOT INTERESTED IN SPEAKING WITH ANYONE ABOUT AND MENTAL HEALTH REFERRALS HE LIVES WITH HIS FAMILY , HE ADMITTED TO TAKING [place] OCCASIONS AND NEVER AT HIS HOME DISCHARGE PLAN HOME NO SERVICES WILL NEED RETURN TO WORK NOTE AT DISCHARGE PCP [id number] AND PATIENT INSTRUCTED T O FOR POST HOSPITAL DISCHARGE TRANSPORTATION SHARON WATSON SELF ARRANGE
[2020-08-16] MEDS: Enoxaparin Sodium 40 MG/0.4 ML SYRINGE SUBCUT (14:11)
[2020-08-16] MEDS: Acetaminophen 325 MG TABLET 650 MG PO (15:34)
[2020-08-17] MEDS: 0.9 % Sodium Chloride Flush 3 ML SYRINGE IVFLUSH ×2 (00:30→07:35)
[2020-08-17] MEDS: Albuterol Sulfate (0.083%) 2.5 MG/3 ML VIAL.NEB INHALE ×2 (07:15→11:15)
[2020-08-17 07:17] VITALS: PULSE 74; O2SAT 95
[2020-08-17] MEDS: Azithromycin 500 MG in 0.9 % Sodium Chloride 250 ML 125 MG IV (07:35)
[2020-08-17 07:47] VITALS: BP 148/80; PULSE 88; RESP 18; TEMP 36.3; O2SAT 96
[2020-08-17] MEDS: cefTRIAXone sodium 1 GM in 0.9 % Sodium Chloride 50 ML IV (09:40)
[2020-08-17 10:05] LABS: Anion Gap 14 (12-20); Blood Urea Nitrogen 11 mg/dL (9-16); Calcium 8.4 mg/dL (8.4-10.2); Carbon Dioxide 28 mmol/L (22-29); Chloride 103 mmol/L (96-108); Creatinine Clr Calc Pharmacy 209.1; Estimated Glomerular Filt Rate > 60; Glucose Random 222 mg/dL (60-115); Potassium 4.5 mmol/l (3.3-5.1); Sodium 140 mmol/L (135-145)
--- NOTE | 2020-08-17 10:52 | PM.DS ---
DS: Providers Provider Date of Service: 08/17/20 Date of admission: 08/15/20 14:32 Primary care physician: Jordyn Champagne MD DS: Diagnosis Discharge Diagnosis (1) Asthma with acute exacerbation: Status: Acute (2) Pneumonia: Status: Acute (3) Acute respiratory failure with hypoxia: Status: Acute DS: Medications Discharge Medications Home Medications: Previous Rx's Medication Instructions Recorded albuterol sulfate 2 puff INHALATION Q4-6H PRN #6.7 g 05/15/20 albuterol sulfate 5 mg INHALATION Q4H PRN #30 ea 05/15/20 fluticasone propionate 1 puff INHALATION BID #10.6 g 08/17/20 levofloxacin 500 mg PO DAILY #5 tab 08/17/20 prednisone 40 mg PO DAILY #6 tab 08/17/20 DS: Summary Hospital Course Hospital Course: Admission note HPI This is a 35-year-old male with a history asthma who presents to the emergency department with complaints of shortness of breath. He reports this worsened overnight. He has associated chest tightness. He coughs when he tries to take a deep breath. He denies any associated fever or chills. He has been using his inhalers and nebulizer at home with no significant improvement in his symptoms. Reports feeling somewhat better after receiving breathing treatments, oxygen and Solu-Medrol in the emergency department. He was noted to be tachypneic and oxygen saturation dropped as low as 88% on room air chest x-ray revealed possible pneumonia right upper lobe and he was treated with IV antibiotics. Hospital course The patient was noted to be hypoxic in the emergency. Admitted to the hospital for treatment of acute hypoxic respiratory failure secondary to pneumonia and asthma exacerbation as shown in chest x-ray. He was treated with oxygen supplement that was weaned down during the hospital stay. He received IV antibiotics, IV steroids and bronchodilator nebulizers with good response as he was able to ambulate freely on room air with no reported dyspnea. Will be discharged home to finish total of 1 week of antibiotic with low of doxazosin. To start ICS inhaler Continue prednisone for 3 more days Time Spent with Patient Time attestation: Total time spent providing and/or coordinating discharge services: Discharge coordination time: Greater than 30 minutes Physical Exam Vital Signs: Vital Signs: Last Vital Signs Temp 97.3 F 08/17/20 07:47 Pulse 88 08/17/20 07:47 Resp 18 08/17/20 07:47 BP 148/80 H 08/17/20 07:47 Pulse Ox 96 08/17/20 07:47 Body Mass Index 38.7 Constitutional : Alert, oriented, not in distress Neck : Normal inspection, Supple Cardiovascular : RRR, S1 S2, no lower extremity edema Respiratory : Good bilateral air entry, no crackles, wheezes or rhonchi Gastrointestinal: soft, lax, Normal bowel sounds, Non tender Skin : Warm/Dry, No rash Neurological : Alert & oriented x3, No focal deficit DS: Data Data Completed and Pending Labs on day of discharge: Laboratory Tests 08/15/20 08/15/20 08/15/20 10:38 10:38 10:38 WBC 10.4 RBC 5.11 Hgb 15.3 Hct 44.8 MCV 87.7 MCH 29.9 MCHC 34.2 RDW 13.0 Plt Count 230 MPV 9.9 Immature Gran % (Auto) 0.3 Neut % (Auto) 71.5 Lymph % (Auto) 15.5 L [place] % (Auto) 7.7 Eos % (Auto) 4.4 H Baso % (Auto) 0.6 Lymph # (Auto) 1.6 [place] # (Auto) 0.8 Eos # (Auto) 0.5 H Baso # (Auto) 0.1 Abs Immat Gran (auto) 0.03 Absolute Neuts (auto) 7.4 Absolute Nucleated RBC 0.000 Nucleated RBC % (auto) 0.0 Smear Tech's Comments Sodium 139 Potassium 4.8 D Chloride 103 Carbon Dioxide 26 Anion Gap 15 BUN 10 D Creatinine 0.88 Estim Creat Clear Calc 180.6 Estimated GFR > 60 Random Glucose 112 Lactic Acid Lactic Acid Fup @ 2Hr Lactic Acid Fup @ 4Hr Calcium 9.0 D B-Natriuretic Peptide < 10 COVID-19 (DELFINO) COVID-19 Clin Com 08/15/20 08/15/20 08/15/20 12:45 13:30 16:13 WBC RBC Hgb Hct MCV MCH MCHC RDW Plt Count MPV Immature Gran % (Auto) Neut % (Auto) Lymph % (Auto) [place] % (Auto) Eos % (Auto) Baso % (Auto) Lymph # (Auto) [place] # (Auto) Eos # (Auto) Baso # (Auto) Abs Immat Gran (auto) Absolute Neuts (auto) Absolute Nucleated RBC Nucleated RBC % (auto) Smear Tech's Comments Sodium Potassium Chloride Carbon Dioxide Anion Gap BUN Creatinine Estim Creat Clear Calc Estimated GFR Random Glucose Lactic Acid 3.8 H* Lactic Acid Fup @ 2Hr 6.3 H* Lactic Acid Fup @ 4Hr Calcium B-Natriuretic Peptide COVID-19 (DELFINO) Negative COVID-19 Clin Com See Note 08/15/20 08/16/20 08/17/20 19:37 10:38 08:48 WBC 16.8 H RBC 4.70 Hgb 14.0 Hct 42.2 MCV 89.8 MCH 29.8 MCHC 33.2 RDW 13.1 Plt Count 228 MPV 10.1 Immature Gran % (Auto) 0.7 H Neut % (Auto) 90.4 H Lymph % (Auto) 5.1 L [place] % (Auto) 3.7 Eos % (Auto) 0.0 Baso % (Auto) 0.1 Lymph # (Auto) 0.9 L [place] # (Auto) 0.6 Eos # (Auto) 0.0 Baso # (Auto) 0.0 Abs Immat Gran (auto) 0.12 H Absolute Neuts (auto) 15.2 H Absolute Nucleated RBC 0.000 Nucleated RBC % (auto) 0.0 Smear Tech's Comments VERIFIED Sodium 140 Potassium 4.5 Chloride 103 Carbon Dioxide 28 Anion Gap 14 BUN 11 Creatinine 0.76 Estim Creat Clear Calc 209.1 Estimated GFR > 60 Random Glucose 222 H D Lactic Acid Lactic Acid Fup @ 2Hr Lactic Acid Fup @ 4Hr 5.9 H* Calcium 8.4 D B-Natriuretic Peptide COVID-19 ([facility]LFINO) COVID-19 Clin Com Preliminary micro results at discharge 08/15/20 13:30 Blood Culture - Preliminary Blood - Venous No growth after 24 hours. 08/15/20 13:30 Blood Culture - Preliminary Blood - Venous No growth after 24 hours. Discharge Plan Discharge Patient Disposition: Home, Self-Care Referrals: Jordyn Sexton MD [Primary Care Provider] - Discharge Medications: New levofloxacin 500 mg tablet 500 mg PO DAILY Qty: 5 RF: 0 prednisone 20 mg tablet 40 mg PO DAILY Qty: 6 RF: 0 fluticasone propionate 44 mcg/actuation HFA aerosol inhaler 1 puff inhalation BID Qty: 10.6 RF: 0 Continued albuterol sulfate 90 mcg/actuation HFA aerosol inhaler 2 puff inhalation Q4-6H PRN (Reason: shortness of breath or wheezing) Qty: 6.7 RF: 0 albuterol sulfate 2.5 mg/0.5 mL solution for nebulization 5 mg inhalation Q4H PRN (Reason: shortness of breath or wheezing) Qty: 30 RF: 0 Discharge Orders: Discharge Order (Routine); Ordered 08/17/20 Ordered By: Kamila Lee Diet: advance to usual diet Activity on Discharge: As tolerated Stand Alone Forms: Work/School Release Visit Report Forms: Patient Portal Discharge page Care Plan Goals: Read below Health Concerns: Read below Plan of Treatment: You were admitted to the hospital for treatment of asthma exacerbation. Your chest x-ray was concerning for possible pneumonia. You were treated with IV antibiotics, nebulizers and steroids with good response. Will discharge home to finish total of 1 week of antibiotics. Continue prednisone for 3 more days To start a new inhaler on daily basis, you can start with once daily and increase it to twice a if symptoms not well controlled Use albuterol inhaler as needed
[2020-08-17 11:18] VITALS: PULSE 111; O2SAT 83
--- NOTE | 2020-08-17 12:04 | MHC.CM.PN ---
electronic medical RECORD REVIEWED ALONG WITH CASE DISCUSSED WITH STAFF NURSE AND ON MULTIPLE DISCIPLINARY ROUNDS, PATIENT WILL BE DISCHARGED HOME TODAY WITH NO SERVICES PATIENT WILL CALL PCP FOR POST HOSPITAL DISCHARGE FOLLOW UP TRANSPORTATION PATIENT TO SELF ARRANGE
== END 2020-08-17 12:28 | disposition home or self-care (01) | DRG 139 ==
LOC: HO.ED 12:21 → HO.S3 17:18
PROVIDERS: Physician Assistant Medical; Admitting Provider Student in an Organized Health Care Education/Training Program; Emergency Provider Emergency Medicine; PCP Internal Medicine; Visit Provider Student in an Organized Health Care Education/Training Program
DX: J18.9 Pneumonia, unspecified organism (principal); J96.01 Acute respiratory failure with hypoxia; J45.41 Moderate persistent asthma with (acute) exacerbation; F41.9 Anxiety disorder, unspecified; Z86.16 Personal history of COVID-19; Z88.6 Allergy status to analgesic agent; Z79.899 Other long term (current) drug therapy
CPT/HCPCS: 36415; 71045; 80048; 83605; 83880; 85025; 87040; 87635; 94640; 96365; 96375; 99284; 99291; J0456; J0696; J1650; J2920; J2930; J3475

== ENCOUNTER 2020-08-26 19:53 | Emergency (ER) | payer MEDICAID, SELFPAY ==
[2020-08-26 22:06] VITALS: BP 132/87; PULSE 114; RESP 21; TEMP 37.3; O2SAT 96; BMI 39.9
--- NOTE | 2020-08-26 22:07 | ECG_ITS ---
Test Reason : ASTHMA Blood Pressure : / mmHG Vent. Rate : 124 BPM Atrial Rate : 124 BPM P-R Int : 136 ms QRS Dur : 092 ms QT Int : 326 ms P-R-T Axes : 033 052 011 degrees QTc Int : 468 ms Sinus tachycardia Nonspecific ST and T wave abnormality When compared to the previous EKG of jul 12, 2020, rate is increased Referred By: Sahra Simpson Electronically Signed By:DEBBI JEFF
--- NOTE | 2020-08-26 22:07 | XR_ITS ---
EXAMINATION: XR CHEST CLINICAL INFORMATION: Shortness of breath COMPARISON: 08/15/2020 TECHNIQUE: Frontal view of the chest was obtained. FINDINGS: No convincing evidence for an acute process. There is a BB overlying the right upper chest similar to previous Low lung volumes. No obvious acute failure or infiltrate. No effusion. XR/XR chest 1V IMPRESSION: Low lung volumes. No acute finding
[2020-08-26 22:47] LABS: MANUAL DIFF FLAG NO
[2020-08-26 22:48] LABS: Basophils Percent Auto 0.5 % (0-2); Eosinophils Absolute Auto 0.3 X10*3/uL (0.0-0.4); Eosinophils Percent Auto 3.2 % (0-4); Hematocrit 48.3 % (42-52); Hemoglobin 16.1 g/dl (14.0-18.0); Imm Gran Abs Auto 0.05 X10*3/uL (0.00-0.03); Imm Gran Pct Auto 0.6 % (0.0-0.4); Lymphocytes Absolute Auto 1.7 X10*3/uL (1.2-4.9); Mean Corpuscular HGB Conc 33.3 g/dl (31.0-36.0); Mean Corpuscular Hemoglobin 29.7 pg (27.0-33.0); Mean Corpuscular Volume 89.1 fL (80-98); Mean Platelet Volume 9.8 fL (9.4-12.4); Monocytes Absolute Auto 0.5 X10*3/uL (0.1-1.2); Monocytes Percent Auto 6.6 % (2-11); Neutrophils Absolute Auto 5.3 X10*3/uL (2.0-8.3); Neutrophils Percent Auto 67.1 % (45-73); Platelet Count 218 X10*3/uL (160-400); Red Blood Count 5.42 X10*6/uL (4.60-5.80); White Blood Count 7.9 X10*3/uL (4.8-10.8)
[2020-08-26 22:53] LABS: Prothrombin Time 11.6 SEC (10.8-13.0)
[2020-08-26 22:56] LABS: Partial Thromboplastin Time 41.6 SEC (24.1-38.0)
[2020-08-26] MEDS: Albuterol Sulfate 90 MCG 8 GM INHALER 2 PUFF INHALE (22:59)
[2020-08-26 23:00] VITALS: PULSE 101; O2SAT 98
[2020-08-26 23:08] VITALS: PULSE 100; O2SAT 95
[2020-08-26] MEDS: Albuterol Sulfate (0.083%) 2.5 MG/3 ML VIAL.NEB 10 MG INHALE (23:08)
[2020-08-26 23:16] LABS: Anion Gap 13 (12-20); Blood Urea Nitrogen 6 mg/dL (9-16); Carbon Dioxide 26 mmol/L (22-29); Chloride 105 mmol/L (96-108); Creatinine Clr Calc Pharmacy 183.6; Estimated Glomerular Filt Rate > 60; Glucose Random 92 mg/dL (60-115); Magnesium 2.2 mg/dL (1.6-2.6); Potassium 4.2 mmol/l (3.3-5.1); Sodium 140 mmol/L (135-145)
[2020-08-26 23:23] LABS: Troponin-I High Sensitivity < 3.5 ng/L (<3.5-35.0)
[2020-08-26] MEDS: methylPREDNISolone Sod Succ/PF 125 MG/2 ML VIAL IVPUSH (23:26)
[2020-08-26] MEDS: Magnesium Sulfate/H2O 2 GM/50 ML PIGGYBACK IV (23:26)
[2020-08-26] MEDS: 0.9 % Sodium Chloride 1,000 ML 999 ML IVCONT (23:30)
[2020-08-26 23:54] LABS: COVID-19 Test Negative (Negative)
--- NOTE | 2020-08-27 00:02 | ED_ITS ---
HPI - Asthma General Chief Complaint: Asthma Stated Complaint: Asthma Time Seen by Provider: 08/26/20 22:06 Source: patient Mode of arrival: ambulatory Limitations: no limitations History of Present Illness HPI Narrative: 35-year-old male with past medical history of asthma presents with 2 days of asthma exacerbation. He states he is unable to maintain symptoms with albuterol inhaler alone. He denies chest pain or pressure, palpitations, abdominal pain, abdominal distention, dysuria, hematuria, fevers and chills. complaint: asthma attack Onset (ago): day(s) (2) Severity: moderate Associated symptoms: dry cough Asthma History: childhood onset Treatments Prior to Arrival: inhaled bronchodilator Related Data Current Asthma Therapy: inhaled bronchodilator Previous Rx's Medication Instructions Recorded albuterol sulfate 2 puff INHALATION Q4-6H PRN #6.7 g 05/15/20 albuterol sulfate 5 mg INHALATION Q4H PRN #30 ea 05/15/20 fluticasone propionate 1 puff INHALATION BID #10.6 g 08/17/20 levofloxacin 500 mg PO DAILY #5 tab 08/17/20 prednisone 40 mg PO DAILY #6 tab 08/17/20 prednisone 60 mg PO DAILY 4 Days #12 tab 08/27/20 Allergies Allergy/AdvReac Type Severity Reaction Status Date / Time ibuprofen [IBUPROFEN] Allergy Mild ITCHY Verified 08/15/20 10:31 Review of Systems Review of Systems: Constitutional: No Fever, No Chills ENT/Mouth: No Hoarseness, No sore throat, No Rhinorrhea Eyes: No Redness, No Discharge, No Vision Changes Cardiovascular: No Chest Pain, positive SOB, positive Dyspnea on Exertion, No Edema Respiratory: positive Cough, No Sputum, positive Wheezing, Gastrointestinal: No Nausea, No Vomiting, No Diarrhea, No abdominal Pain Genitourinary: No Dysuria, No Hematuria Musculoskeletal: No joint pain, No Myalgias Skin: No rash Neuro: No Weakness, No Numbness, No Headache Psych: No anxiety, depression Heme/Lymph: No Bruising, No Bleeding Endocrine: No Polyuria, No Polydipsia Yes all other systems are reviewed and are negative [facility], [facility] Past Medical History Attestation statement: The following information was validated with the patient. Medical History Anxiety Asthma COVID-19 Depression Social History Social History Household Members: Family Housing: Apartment Alcohol intake: never Smoking Status: Never smoker Substance Use Type: Marijuana Advance Directives: No Advance Directives Information Provided: Yes service: No Current occupational status: employed Physical Exam Vital Signs: Vital Signs: Last Vital Signs Temp 99.1 F 08/26/20 22:06 Pulse 100 08/26/20 23:08 Resp 21 H 08/26/20 22:06 BP 132/87 08/26/20 22:06 Pulse Ox 96 08/26/20 22:06 Body Mass Index 39.9 Appearance: Alert. Oriented X3. Moderate distress. Head: Normal external exam. Normocephalic. Atraumatic. No [place] signs noted. No raccoon eyes noted Eyes: PERRLA. EOMI. Conjunctiva and sclera normal. Eyelids normal. ENT: TM's Normal. Pharynx normal. Uvula midline. Moist mucous membranes. No trismus noted. No drooling noted. No muffled voice noted. Neck: Normal inspection. Neck supple. No adenopathy. No meningeal signs CVS: Tachycardic heart rate and rhythm. Heart sound normal. No murmurs noted. Pulses equal to all extremities. Respiratory: Mild respiratory distress. Painless inspiration. Breath sounds diminished with inspiratory and expiratory wheezing. Chest nontender. No accessory muscle usage noted or decreased air movement noted. Abdomen: Soft and nontender. Bowel sounds normal in all 4 quadrants. No distention noted. No organomegaly noted. No visible injury noted. Back: No CVA tenderness. Full range of motion noted. Skin: Skin warm and dry. Normal skin color. Normal skin turgor. No rashes/lesions/lacerations noted. Extremities: No lower extremity edema. Extremities exhibit normal range of motion. Extremities nontender. Neuro: cranial nerves 2-12 intact, no focal neural deficits, strength 5/5 to all extremities, No motor deficit. No sensory deficit. Reflexes normal. Course Course Course Narrative: 35-year-old male presents with asthma exacerbation. Plan of care is for 1 L of normal saline, Solu-Medrol, magnesium, and albuterol inhaler. Albuterol inhaler ineffective, Dr. Slaughter ordered nebs. At 12:12 p.m. on 08/27/2020 patient states he feels much better, feels less tight than arrival, heart rate is elevated in the 120s however he did have an hour long neb. patient does understand that if shortness of breath continues or if he has any other symptoms to return to emergency department. He does have neb treatments at home. Will discharge with prednisone. Patient verbalized understanding of and agrees plan care discharge home. MDM - Asthma Differential Diagnosis Differential diagnosis: Likely Acute exacerbation, Acute asthmatic bronchitis and Pneumonia Medical Records Attestation: I reviewed the patient's medical records. Lab Data Attestation: I reviewed the patient's lab results. Result diagrams: 08/26/20 22:42 08/26/20 22:42 Labs: Lab Results 08/26/20 08/26/20 08/26/20 Range/Units 22:42 22:42 22:42 WBC 7.9 (4.8-10.8) X10*3/uL RBC 5.42 (4.60-5.80) X10*6/uL Hgb 16.1 (14.0-18.0) g/dl Hct 48.3 (42-52) % MCV 89.1 (80-98) fL MCH 29.7 (27.0-33.0) pg MCHC 33.3 (31.0-36.0) g/dl RDW 13.0 (11.0-16.0) % Plt Count 218 (160-400) X10*3/uL MPV 9.8 (9.4-12.4) fL Immature Gran % (Auto) 0.6 H (0.0-0.4) % Neut % (Auto) 67.1 (45-73) % Lymph % (Auto) 22.0 (20-40) % [place] % (Auto) 6.6 (2-11) % Eos % (Auto) 3.2 (0-4) % Baso % (Auto) 0.5 (0-2) % Lymph # (Auto) 1.7 (1.2-4.9) X10*3/uL [place] # (Auto) 0.5 (0.1-1.2) X10*3/uL Eos # (Auto) 0.3 (0.0-0.4) X10*3/uL Baso # (Auto) 0.0 (0.0-0.2) X10*3/uL Abs Immat Gran (auto) 0.05 H (0.00-0.03) X10*3/uL Absolute Neuts (auto) 5.3 (2.0-8.3) X10*3/uL Absolute Nucleated RBC 0.000 (0.0-0.012) X10*3/uL Nucleated RBC % (auto) 0.0 (0.0-0.2) /100WBC PT 11.6 (10.8-13.0) SEC INR 1.0 (0.9-1.1) APTT 41.6 H (24.1-38.0) SEC Sodium 140 (135-145) mmol/L Potassium 4.2 (3.3-5.1) mmol/l Chloride 105 (96-108) mmol/L Carbon Dioxide 26 (22-29) mmol/L Anion Gap 13 (12-20) BUN 6 L (9-16) mg/dL Creatinine 0.88 (0.5-1.4) mg/dL Estim Creat Clear Calc 183.6 Estimated GFR > 60 Random Glucose 92 D (60-115) mg/dL Calcium 9.0 D (8.4-10.2) mg/dL Magnesium 2.2 (1.6-2.6) mg/dL Troponin I High Sens (<3.5-35.0) ng/L COVID-19 (DELFINO) (Negative) COVID-19 Clin Com 08/26/20 08/26/20 Range/Units 22:42 23:33 WBC (4.8-10.8) X10*3/uL RBC (4.60-5.80) X10*6/uL Hgb (14.0-18.0) g/dl Hct (42-52) % MCV (80-98) fL MCH (27.0-33.0) pg MCHC (31.0-36.0) g/dl RDW (11.0-16.0) % Plt Count (160-400) X10*3/uL MPV (9.4-12.4) fL Immature Gran % (Auto) (0.0-0.4) % Neut % (Auto) (45-73) % Lymph % (Auto) (20-40) % [place] % (Auto) (2-11) % Eos % (Auto) (0-4) % Baso % (Auto) (0-2) % Lymph # (Auto) (1.2-4.9) X10*3/uL [place] # (Auto) (0.1-1.2) X10*3/uL Eos # (Auto) (0.0-0.4) X10*3/uL Baso # (Auto) (0.0-0.2) X10*3/uL Abs Immat Gran (auto) (0.00-0.03) X10*3/uL Absolute Neuts (auto) (2.0-8.3) X10*3/uL Absolute Nucleated RBC (0.0-0.012) X10*3/uL Nucleated RBC % (auto) (0.0-0.2) /100WBC PT (10.8-13.0) SEC INR (0.9-1.1) APTT (24.1-38.0) SEC Sodium (135-145) mmol/L Potassium (3.3-5.1) mmol/l Chloride (96-108) mmol/L Carbon Dioxide (22-29) mmol/L Anion Gap (12-20) BUN (9-16) mg/dL Creatinine (0.5-1.4) mg/dL Estim Creat Clear Calc Estimated GFR Random Glucose (60-115) mg/dL Calcium (8.4-10.2) mg/dL Magnesium (1.6-2.6) mg/dL Troponin I High Sens < 3.5 (<3.5-35.0) ng/L COVID-19 (DELFINO) Negative (Negative) COVID-19 Clin Com See Note Imaging Data Chest x-ray: Attestation: I personally reviewed and interpreted this imaging study as follows: Radiologist's impression: EXAMINATION: XR CHEST CLINICAL INFORMATION: Shortness of breath COMPARISON: 08/15/2020 TECHNIQUE: Frontal view of the chest was obtained. FINDINGS: No convincing evidence for an acute process. There is a BB overlying the right upper chest similar to previous Low lung volumes. No obvious acute failure or infiltrate. No effusion. XR/XR chest 1V IMPRESSION: Low lung volumes. No acute finding ECG Data Attestation: I personally reviewed and interpreted this ECG as follows: ECG interpretation date: 08/27/20 ECG interpretation time: 00:19 Interpretation: Ventricular rate 124, DC 136, QRS 92, QT 326, QTC 468, sinus tachycardia, T-wave abnormality. Please note EKG was taken after an hour long nebulizer treatment. Discharge Plan Discharge Clinical Impression: Asthma with acute exacerbation Qualifiers: Asthma severity: moderate Asthma persistence: persistent Qualified Code(s): J45.41 - Moderate persistent asthma with (acute) exacerbation Patient Disposition: Home, Self-Care Instructions: Moderate and Severe Persistent Asthma (ED) Additional Instructions: You were evaluated for asthma exacerbation. Please consider following up with primary care physician and/or Pulmonary. We have referred you to Dr. Ivan Rodriguez. Please call and make an appointment as needed. Please use nebulizers and albuterol as directed. We prescribed prednisone 60 mg for the next 4 days. If symptoms persist please return to the emergency department immediately. Thank you for choosing this emergency department for evaluation. Please follow-up with primary care physician as needed. Return to the emergency department for any new, concerning, or worsening symptoms. Prescriptions: New prednisone 20 mg tablet 60 mg PO DAILY 4 Days Qty: 12 RF: 0 No Action albuterol sulfate 90 mcg/actuation HFA aerosol inhaler 2 puff inhalation Q4-6H PRN (Reason: shortness of breath or wheezing) Qty: 6.7 RF: 0 albuterol sulfate 2.5 mg/0.5 mL solution for nebulization 5 mg inhalation Q4H PRN (Reason: shortness of breath or wheezing) Qty: 30 RF: 0 levofloxacin 500 mg tablet 500 mg PO DAILY Qty: 5 RF: 0 prednisone 20 mg tablet 40 mg PO DAILY Qty: 6 RF: 0 fluticasone propionate 44 mcg/actuation HFA aerosol inhaler 1 puff inhalation BID Qty: 10.6 RF: 0 Referrals: Ivan Rodriguez MD [Physician] - 2 days (Recurrent acute asthma exacerbation)
--- NOTE | 2020-08-27 00:49 | PC.NURSE ---
PT FEELS ABLE TO TAKE DEEP BREATHS WITHOUT WHEEZING AFTER TREATMENTS AND MEDICATION. LS CLEAR.
[2020-08-27 00:56] VITALS: BP 142/88; PULSE 119; RESP 16; TEMP 37.1; O2SAT 99
--- NOTE | 2020-08-27 00:57 | PC.NURSE ---
PT HAS BEEN ON MONITOR SINCE ARRIVAL EKG OBTAINED.
== END 2020-08-27 01:12 | disposition home or self-care (01) ==
PROVIDERS: Nurse Practitioner Family; Emergency Provider Emergency Medicine; PCP Internal Medicine
DX: J45.41 Moderate persistent asthma with (acute) exacerbation (principal); Z20.822 Contact with and (suspected) exposure to COVID-19; Z79.899 Other long term (current) drug therapy
CPT/HCPCS: 36415; 71045; 80048; 83735; 84484; 85025; 85610; 85730; 87635; 93005; 94640; 96361; 96365; 96375; 99284; J2930; J3475

== ENCOUNTER 2023-06-28 04:14 | Emergency (ER) | payer SELFPAY ==
--- NOTE | ~2023-06-28 | XR_ITS ---
EXAMINATION: XR CHEST CLINICAL INFORMATION: Chest x-ray on 08/26/2020 COMPARISON: None available. TECHNIQUE: 2 views of the chest were obtained. FINDINGS: vascularity. LUNGS: Lungs are hypoinflated and clear. No pneumothorax is seen. BONES: Bony skeleton is intact. XR/XR chest 2V IMPRESSION: 1. Unchanged hypoinflation of lungs. 2. Unchanged, no radiographic signs of acute cardiopulmonary process.
[2023-06-28 04:20] VITALS: BP 129/83; PULSE 106; RESP 26; TEMP 36.1; O2SAT 97; BMI 41.5
[2023-06-28] MEDS: Albuterol Sulfate 2.5 MG, Albuterol/Iprat 2.5/0.5MG 3 ML 3 ML INHALE ×2 (04:48→07:00)
[2023-06-28 04:49] VITALS: PULSE 103; RESP 20; O2SAT 94
[2023-06-28] MEDS: Albuterol Sulfate 2.5 MG, Albuterol Sulfate (0.083%) 2.5 MG 5 MG INHALE (04:55)
[2023-06-28 06:05] VITALS: BP 151/94; PULSE 113; RESP 20; TEMP 36.6; O2SAT 97
--- NOTE | 2023-06-28 06:34 | ED.ASTHMA ---
HPI - Asthma General Chief Complaint: Asthma Stated Complaint: Asthma Time Seen by Provider: 06/28/23 06:33 Source: patient, RN notes reviewed and old records reviewed Mode of arrival: ambulatory History of Present Illness HPI Narrative: 38-year-old male past medical history significant for uncontrolled asthma presenting to the ED c/o intermittent productive cough with chest pain w/coughing x started yesterday evening. Admits to compliance with albuterol inhaler and nebulizer, last use of for a.m.. Denies recent prednisone use. Endorses no primary care physician. Patient from [place], has been here for 4 months, denies other recent travel. Denies history of intubation, fever/chills, pedal edema, sick contacts, abdominal pain, nausea/vomiting MD complaint: asthma attack , shortness of breath and wheezing Onset (ago): hour(s) Related Data Previous Rx's Medication Instructions Recorded albuterol sulfate 2.5 mg/0.5 mL 5 mg inhalation Q4H PRN shortness 05/15/20 solution for nebulization of breath or wheezing #30 ea albuterol sulfate 90 mcg/actuation 2 puff inhalation Q4-6H PRN 05/15/20 aerosol inhaler shortness of breath or wheezing #6.7 grams fluticasone propionate 44 1 puff inhalation BID #10.6 grams 08/17/20 mcg/actuation HFA aerosol inhaler levofloxacin 500 mg tablet 500 mg PO DAILY #5 tabs 08/17/20 prednisone 20 mg tablet 40 mg (2 x 20 mg) PO DAILY #6 tabs 08/17/20 prednisone 20 mg tablet 60 mg (3 x 20 mg) PO DAILY 4 days 08/27/20 #12 tabs prednisone 20 mg tablet 40 mg (2 x 20 mg) PO DAILY 5 days 06/28/23 #10 tabs Allergies Allergy/AdvReac Type Severity Reaction Status Date / Time ibuprofen [IBUPROFEN] Allergy Mild ITCHY Verified 08/15/20 10:31 Review of Systems Review of Systems: Yes all other systems are reviewed and are negative Constitutional: Constitutional: Denies anorexia, Denies chills, Denies excessive sweating and Denies fever(s) Eyes: Eyes: Denies no additional eye complaints ENT: Denies system reviewed and no additional complaints, except as documented, Denies nasal congestion and Denies nasal discharge Cardiovascular: Cardiovascular: Reports chest pain (w/coughing), Reports rapid heart rate and Denies dyspnea Respiratory: Respiratory: Reports cough and Denies dyspnea Gastrointestinal: Gastrointestinal: Reports no additional gastrointestinal complaints, Denies abdominal pain and Denies vomiting Genitourinary: Genitourinary: Reports no additional male genitourinary complaints Musculoskeletal: Musculoskeletal: Reports no additional musculoskeletal complaints Integumentary/Breasts: Skin/Breast: Reports system reviewed and no additional complaints, except as docu Neurologic: Reports system reviewed and no additional complaints, except as documented Psychiatric: Psychiatric: Reports no additional psychiatric complaints Endocrine: Endocrine: Reports no additional endocrine complaints and Denies excessive sweating Hematologic/Lymphatic: Hematologic/Lymphatic: Reports no additional hematologic/lymphatic complaints [facility] Past Medical History Attestation statement: The following information was validated with the patient. Source: old records reviewed Medical History COVID-19 Depression Anxiety Asthma Social History Household Members: Family Housing: Apartment Do you presently have visiting nurse or other home services: No Alcohol intake: never Smoked in Last 30 Days: Yes Use of substances other than those prescribed or required for medical reasons: No Substance Use Type: Marijuana Advance Directives: No Advance Directives Information Provided: No service: No Current occupational status: employed Physical Exam Vital Signs: Vital Signs: Last Vital Signs Temp 98.2 F 06/28/23 08:37 Pulse 110 H 06/28/23 08:37 Resp 19 06/28/23 08:37 BP 127/77 06/28/23 08:37 Pulse Ox 95 06/28/23 08:37 O2 Del Method Room Air 06/28/23 08:37 BMI result Body Mass Index 41.5 Const: General: cooperative, healthy appearing and no acute distress Orientation/consciousness: patient oriented x3 Limitations: no limitations HEENT: Head: Yes normal to inspection and Yes atraumatic Ears: hearing grossly normal bilaterally General nose exam: Normal external nose present Face and sinus: Yes normal facial exam Throat: Yes posterior oropharynx normal Eyes: General: appearance normal, both eyes and all related structures EOM: EOMs intact bilaterally Neck: Neck: Yes normal visual inspection and Yes no meningeal signs Resp: Effort & Inspection: normal respiratory effort and no respiratory distress Auscultation: wheezes expiratory wheezes and throughout Cardio: Rate: tachycardic Rhythm: regular rhythm Heart sounds: S1 normal heart sound present and S2 normal heart sound present Skin: Rashes: no rashes Wounds: no wounds Neuro: General: patient oriented x3, tone normal and no meningeal signs Cranial nerves: Yes CN's II-XII intact bilaterally Gait exam (Neuro): Normal gait present Extrem: General: Yes normal to inspection, Yes no pedal edema and Yes no calf tenderness Course Course Course Narrative: 08:32 upon re-evaluation lungs CTA bilaterally. Flu and COVID testing negative. Results discussed with patient including worrisome signs and symptoms and strict return precautions, and when to return to the emergency department. They verbalized understanding and feel safe for discharge at this time. XR chest 2V IMPRESSION: 1. Unchanged hypoinflation of lungs. 2. Unchanged, no radiographic signs of acute cardiopulmonary process. Medications Administered Discontinued Medications Generic Name Dose Route Start Last Admin Trade Name Freq PRN Reason Stop Dose Admin Albuterol Sulfate 2.5 mg/ 5 mg 06/28/23 04:53 06/28/23 04:55 Albuterol Sulfate 2.5 mg INHALE 06/28/23 04:54 5 mg ONCE ONE Administration Albuterol Sulfate 2.5 mg/ 0 mg 06/28/23 04:44 06/28/23 04:48 Albuterol/Ipratropium 3 ml INHALE 06/28/23 04:45 5 dose ONCE ONE Administration Albuterol Sulfate 2.5 mg/ 0 mg 06/28/23 06:50 06/28/23 07:00 Albuterol/Ipratropium 3 ml INHALE 06/28/23 06:51 5 dose ONCE ONE Administration Prednisone 40 mg 06/28/23 06:50 06/28/23 07:06 Prednisone 20 Mg Tablet PO 06/28/23 06:51 40 mg ONCE ONE Administration Medical Decision Making Medical Decision Making [facility] Narrative: 38-year-old male past medical history significant for uncontrolled asthma presenting to the ED c/o intermittent productive cough with chest pain w/coughing x started yesterday evening. On exam initially tachypneic and tachycardic likely from albuterol use [employer]. Expiratory wheeze noted throughout, talking in complete sentences, no respiratory distress, no pedal edema/calf tenderness. Concern for asthma exacerbation vs viral syndrome vs pneumonia. Lower suspicion for ACS/PE or CHF at this time Plan: Viral testing, CXR, DuoNebs, p.o. prednisone, re-evaluate Please refer to course for remaining clinical decision making, interpretation of labs/imaging results, and discussions with consultants and/or family members. Differential Diagnosis Differential Diagnoses: The differential diagnosis associated with the presentation includes As above Admission/Observation Consideration of admission/observation: Escalation of care including admission/observation considered Lab Data MDM Lab Attestation statement: I reviewed the patient's lab results. Labs: Lab Results 06/28/23 Range/Units 07:06 COVID-19 ([facility]) Negative (Negative) COVID-19 Clin Com See Note Influenza Type A (KATE) Negative (Negative) Influenza Type B (KATE) Negative (Negative) Influenza A & B Note See Note Radiology Impression Discussion of test interpretation with radiology: I have reviewed the radiologist's reading. External Record Review External record reviewed: Inpatient record, Office record, Outpatient record, Prior outpatient labs, Prior outpatient radiology, Primary care record and Outside ED record Tests considered The following testing was considered but not selected: As above Chronic Conditions Patient?s care impacted by: Other (asthma) Discharge Plan Discharge Clinical Impression: Asthma with acute exacerbation Patient Disposition: Home, Self-Care Instructions: Asthma (DC) Additional Instructions: You tested negative for COVID and flu Continue to use your inhaler and neb machine at home In addition take prednisone as prescribed Lots of fluids Rest, stay hydrated If symptoms persist or worsen return to the emergency department David negativo en COVID y gripe Contin?e usando mcguire inhalador y m?quina neb en casa. Adem?s, tome prednisona seg?n lo prescrito. muchos fluidos Descansa, mantente hidratado Si los s?ntomas persisten o empeoran, regrese al departamento de emergencias. Prescriptions: New prednisone 20 mg tablet 40 mg PO DAILY 5 Days Qty: 10 0RF No Action albuterol sulfate 90 mcg/actuation HFA aerosol inhaler 2 puff inhalation Q4-6H PRN (Reason: shortness of breath or wheezing) Qty: 6.7 0RF albuterol sulfate 2.5 mg/0.5 mL solution for nebulization 5 mg inhalation Q4H PRN (Reason: shortness of breath or wheezing) Qty: 30 0RF levofloxacin 500 mg tablet 500 mg PO DAILY Qty: 5 0RF prednisone 20 mg tablet 40 mg PO DAILY Qty: 6 0RF fluticasone propionate 44 mcg/actuation HFA aerosol inhaler 1 puff inhalation BID Qty: 10.6 0RF Rx Instructions: administer with spacer prednisone 20 mg tablet 60 mg PO DAILY 4 Days Qty: 12 0RF Referrals: [facility] Primary Care[facility]lee [Provider Group] [facility] Primary Care[facility] [Provider Group] [facility] In [facility] [Provider Group] Physician,Unknown J [Primary Care Provider] - Interventions: ED Discharge Assessment Last Done: 06/28/23 08:51 Discharge Date/Time: 06/28/23 08:51 Print Language: Turkmen
[2023-06-28 06:52] VITALS: BP 128/78; PULSE 106; RESP 24; TEMP 36.6; O2SAT 93
[2023-06-28 07:01] VITALS: PULSE 105; RESP 17; O2SAT 96
--- NOTE | 2023-06-28 07:02 | PC.NURSE ---
Report from Manas RN Patient is awake and alert, skin pwd, resp even, tachypneic at 24. Patient c/o of continued SOB, exp wheezes bilaterally, dim at the bases. ST via tele. reports hx of asthma. patient aware of plan of care
[2023-06-28] MEDS: predniSONE 20 MG TABLET 40 MG PO (07:06)
[2023-06-28 07:31] LABS: COVID-19 Test Negative (Negative); IDNOW Serial# 08D9AD1C; IDNOW Serial# BCCEAD1C; Influenza A Negative (Negative); Influenza B2 Negative (Negative)
[2023-06-28 08:37] VITALS: BP 127/77; PULSE 110; RESP 19; TEMP 36.8; O2SAT 95
== END 2023-06-28 08:51 | disposition home or self-care (01) ==
PROVIDERS: Physician Assistant; Emergency Provider Internal Medicine
DX: J45.901 Unspecified asthma with (acute) exacerbation (principal); R05.9 Cough, unspecified; R07.89 Other chest pain; R06.02 Shortness of breath; Z79.899 Other long term (current) drug therapy; Z11.52 Encounter for screening for COVID-19; Z20.822 Contact with and (suspected) exposure to COVID-19
CPT/HCPCS: 71046; 87502; 87635; 94640; 99284; 99285